=== PATIENT | male | born 1975 | race Caucasian/White ===

== ENCOUNTER 2025-02-06 13:10 | Observation (INO) ==
[2025-02-06 13:39] VITALS: BMI 28.5
--- NOTE | 2025-02-06 14:09 | DR.GENAD ---
HPI Time Seen Time Seen by Provider: 02/06/25 13:55 PCP Primary Care Physician: JOHN Gibbs HPI Comment HPI Comment: History as below. Complaint/Symptoms Chief Complaint Doctors Comments: Patient is 49yr old male with liver cirrhosis and ascites in ER Chief Complaint:: Pt c/o chronic fatigue and generalized weakness that has progressively worsened over the past 1-2 weeks. Pt has history or liver cirrhosis and is scheduled for further testing with Dr. Refugio Chappell of patology at [facility] in [place] on February 18. Pt had outpatient labs drawn today in preparation for this appointment and was called and told to come to the ED because his sodium was 123. COVID-19 Coronavirus risk:travel/contact w/high risk person: No Has patient experienced Coronavirus symptoms: No Source History Provided: Patient Mode of Arrival Mode of Arrival: Ambulatory Timing Onset of Chief Complaint: 02/06/25 PMH PMH Past Medical History: Yes Past Medical History: Hypertension and Liver Disease Past Medical History Comment: Liver cirrhosis. portal htn Past Surgical History: Yes Surgical History: Tonsillectomy Past Surgical History Comment: right knee surgery, benign mass removed from left kidney Family History History of Family Medical Conditions: Yes Family Medical History: Heart Failure and Hypertension Family Medical History Comment: liver cirrhosis Social History Does patient currently use any type of tobacco product: No Have you used tobacco products in the last 12 months: No Type of Tobacco Use: None Does any household member use tobacco: No Alcohol Use: None Do you use any recreational Drugs:: No Lives With: Family Lives Where: Home Travel Risk Coronavirus risk:travel/contact w/high risk person: No Has patient experienced Coronavirus symptoms: No Infectious screening In the last 2 months have you had wt loss of >10#?: NO Have you had fever, night sweats or hemotysis?: No Have you traveled outside the country in the last 6 months?: No Isolation: Standard PE Vital Signs Vitals: Vital Signs Temperature 97.9 F Pulse Rate 106 Respiratory Rate 20 Blood Pressure 143/83 Blood Pressure 117/74 Blood Pressure 114/79 Blood Pressure 125/80 Blood Pressure 114/69 Blood Pressure 110/71 Blood Pressure 134/89 O2 Sat by Pulse Oximetry 96 ROR Labs Reviewed 02/07/25 05:17 02/07/25 05:17 Laboratory: WBC 7.1 X10^3/uL (3.6-10.0) 02/06/25 14:21 RBC 5.00 X10^6/uL (4.7-6.0) 02/06/25 14:21 Hgb 15.4 g/dL (13.5-18.0) 02/06/25 14:21 Hct 44.0 % (42.0-54.0) 02/06/25 14:21 MCV 87.9 fL (80.0-100.0) 02/06/25 14:21 MCH 30.8 pg (27.0-34.0) 02/06/25 14:21 MCHC 35.0 g/dL (33.0-35.0) 02/06/25 14:21 RDW 15.1 % (11.6-16.5) 02/06/25 14:21 Plt Count 107 X10^3/uL (150.0-450.0) L 02/06/25 14:21 MPV 9.2 fL (7.4-11.0) 02/06/25 14:21 Neut % (Auto) 68.3 % (42.0-75.0) 02/06/25 14:21 Lymph % (Auto) 15.8 % (21.0-51.0) L 02/06/25 14:21 Clare % (Auto) 10.8 % (0.0-13.0) 02/06/25 14:21 Eos % (Auto) 3.1 % (0.9-2.9) H 02/06/25 14:21 Baso % (Auto) 2.0 % (0.2-1.0) H 02/06/25 14:21 Neut # (Auto) 4.8 x10^3/uL (2.2-4.8) 02/06/25 14:21 Lymph # (Auto) 1.1 X10^3/uL (1.3-2.9) L 02/06/25 14:21 Clare # (Auto) 0.8 x10^3/uL (0.3-0.8) 02/06/25 14:21 Eos # (Auto) 0.2 x10^3/uL (0.0-0.2) 02/06/25 14:21 Baso # (Auto) 0.1 X10^3/uL (0.0-0.1) 02/06/25 14:21 Absolute Nucleated RBC 0.4 /100WBC 02/06/25 14:21 PT 18.8 SECONDS (11.8-14.3) 02/06/25 14:21 INR Target Range - 02/06/25 14:21 INR 1.62 (0.8-1.3) H 02/06/25 14:21 APTT 39.1 SECONDS (22.9-36.5) H 02/06/25 14:21 PTT Comment - 02/06/25 14:21 Sodium 123 mmol/L (136-145) L* 02/06/25 14:21 Corrected Sodium 124 mmol/L (136-145) L 02/06/25 14:21 Potassium 4.4 mmol/L (3.5-5.1) 02/06/25 14:21 Chloride 92 mmol/L (98-107) L 02/06/25 14:21 Carbon Dioxide 23.3 mmol/L (21-32) 02/06/25 14:21 BUN 15 mg/dL (7-18) 02/06/25 14:21 Creatinine 0.94 mg/dL (0.70-1.30) 02/06/25 14:21 Est GFR (MDRD) Af Amer > 60 (>60) 02/06/25 14:21 Est GFR (MDRD) Non-Af > 60 (>60) 02/06/25 14:21 Glucose 123 mg/dL (65-99) H 02/06/25 14:21 Calcium 9.5 mg/dL (8.5-10.1) 02/06/25 14:21 Corrected Calcium TNP 02/06/25 14:21 Total Bilirubin 3.10 mg/dL (0.2-1.0) H 02/06/25 14:21 AST 59 Units/L (15-37) H 02/06/25 14:21 ALT 56 Units/L (12-78) 02/06/25 14:21 Alkaline Phosphatase 193 Units/L (46-116) H 02/06/25 14:21 Total Protein 7.9 g/dL (6.4-8.2) 02/06/25 14:21 Albumin 3.4 g/dL (3.4-5.0) 02/06/25 14:21 Globulin 4.5 g/dL (2.5-4.5) 02/06/25 14:21 Albumin/Globulin Ratio 0.8 Ratio (1.1-2.1) L 02/06/25 14:21 Opioid Opioid Risk Tool Age (Cristobal box if 16-45): Yes History of Preadolescent Sexual Abuse: No Total: 1 Total Score Risk Category: Low Risk Copyright: Arjun ROMERO predicting aberrant behaviors Discharge Plan Diagnosis Discharge Problem: Hyponatremia, Liver cirrhosis, Ascites, Dizziness Discharge Plan Patient Disposition: 09 ADMITTED INPATIENT Condition: Stable
[2025-02-06 14:50] LABS: BASOPHILS # (AUTO) 0.1 X10^3/uL (0.0-0.1); EOSINOPHILS # (AUTO) 0.2 x10^3/uL (0.0-0.2); EOSINOPHILS % (AUTO) 3.1 % (0.9-2.9); HEMOGLOBIN 15.4 g/dL (13.5-18.0); LYMPHOCYTES # (AUTO) 1.1 X10^3/uL (1.3-2.9); LYMPHOCYTES % (AUTO) 15.8 % (21.0-51.0); MEAN CORPUSCULAR HEMOGLOBIN 30.8 pg (27.0-34.0); MEAN CORPUSCULAR VOLUME 87.9 fL (80.0-100.0); MEAN PLATELET VOLUME 9.2 fL (7.4-11.0); MONOCYTES # (AUTO) 0.8 x10^3/uL (0.3-0.8); MONOCYTES % (AUTO) 10.8 % (0.0-13.0); NEUTROPHILS # (AUTO) 4.8 x10^3/uL (2.2-4.8); NEUTROPHILS % (AUTO) 68.3 % (42.0-75.0); PLATELET COUNT 107 X10^3/uL (150.0-450.0); RED CELL DISTRIBUTION WIDTH 15.1 % (11.6-16.5); WHITE BLOOD COUNT 7.1 X10^3/uL (3.6-10.0)
[2025-02-06 14:55] LABS: ALANINE AMINOTRANSFERASE 56 Units/L (12-78); ALBUMIN 3.4 g/dL (3.4-5.0); ALKALINE PHOSPHATASE 193 Units/L (46-116); ASPARTATE AMINO TRANSFERASE 59 Units/L (15-37); BLOOD UREA NITROGEN 15 mg/dL (7-18); CALCIUM 9.5 mg/dL (8.5-10.1); CARBON DIOXIDE 23.3 mmol/L (21-32); CHLORIDE 92 mmol/L (98-107); COR NA(FOR HYPERGLY) 124 mmol/L (136-145); CREATININE 0.94 mg/dL (0.70-1.30); GLUCOSE 123 mg/dL (65-99); INR 1.62 (0.8-1.3); POTASSIUM 4.4 mmol/L (3.5-5.1); TOTAL PROTEIN 7.9 g/dL (6.4-8.2); eGFR NON BLACK RACES > 60 (>60)
[2025-02-06 14:57] LABS: SODIUM 123 mmol/L (136-145)
[2025-02-06] MEDS ORDERED: NS 1,000 ML IV 1,000 ML ONE (16:42)
[2025-02-06] MEDS: NS 1,000 ML IV 1,000 ML IV SCH ×2 (16:46→18:21)
[2025-02-07 00:36] LABS: BILIRUBIN,URINE NEGATIVE (NEGATIVE); BLOOD/HEMOGLOBIN,URINE NEGATIVE (NEGATIVE); GLUCOSE, URINE NEGATIVE (NEGATIVE); KETONES,URINE NEGATIVE (NEGATIVE); LEUKOCYTE ESTERASE ,URINE NEGATIVE (NEGATIVE); NITRITES,URINE NEGATIVE (NEGATIVE); PROTEIN,URINE 1+ (NEGATIVE); UROBILINOGEN,URINE 2+ (NORMAL)
[2025-02-07 00:55] LABS: APPEARANCE,URINE CLEAR (CLEAR); COLOR,URINE YELLOW (YELLOW)
[2025-02-07 00:56] LABS: BACTERIA,URINE NEGATIVE /HPF (NEGATIVE); RBC,URINE NONE SEEN /HPF (0-3); SQUAMOUS EPITHELIAL CELL,UR RARE /HPF (NEGATIVE)
[2025-02-07 06:10] LABS: BASOPHILS # (AUTO) 0.1 X10^3/uL (0.0-0.1); BASOPHILS % (AUTO) 0.9 % (0.2-1.0); EOSINOPHILS # (AUTO) 0.4 x10^3/uL (0.0-0.2); EOSINOPHILS % (AUTO) 6.3 % (0.9-2.9); LYMPHOCYTES # (AUTO) 1.5 X10^3/uL (1.3-2.9); LYMPHOCYTES % (AUTO) 22.3 % (21.0-51.0); MEAN CORPUSCULAR HEMOGLOBIN 30.7 pg (27.0-34.0); MEAN CORPUSCULAR HGB CONC 34.9 g/dL (33.0-35.0); MEAN PLATELET VOLUME 9.1 fL (7.4-11.0); MONOCYTES # (AUTO) 0.8 x10^3/uL (0.3-0.8); MONOCYTES % (AUTO) 12.3 % (0.0-13.0); NEUTROPHILS # (AUTO) 3.8 x10^3/uL (2.2-4.8); NEUTROPHILS % (AUTO) 58.2 % (42.0-75.0); PLATELET COUNT 96 X10^3/uL (150.0-450.0); RED BLOOD COUNT 4.89 X10^6/uL (4.7-6.0); RED CELL DISTRIBUTION WIDTH 14.9 % (11.6-16.5); WHITE BLOOD COUNT 6.5 X10^3/uL (3.6-10.0)
[2025-02-07 06:20] LABS: ALANINE AMINOTRANSFERASE 61 Units/L (12-78); ALBUMIN 3.3 g/dL (3.4-5.0); ALKALINE PHOSPHATASE 265 Units/L (46-116); ASPARTATE AMINO TRANSFERASE 62 Units/L (15-37); BLOOD UREA NITROGEN 14 mg/dL (7-18); CALCIUM 9.2 mg/dL (8.5-10.1); CARBON DIOXIDE 25.6 mmol/L (21-32); CHLORIDE 97 mmol/L (98-107); COR CA(FOR HYPOALB) 9.8 mg/dL (8.5-10.1); GLUCOSE 86 mg/dL (65-99); POTASSIUM 4.5 mmol/L (3.5-5.1); SODIUM 131 mmol/L (136-145); TOTAL PROTEIN 7.7 g/dL (6.4-8.2); eGFR NON BLACK RACES > 60 (>60)
--- NOTE | 2025-02-07 17:31 | DR.H&P ---
H&P History & Physical for Day of: H&P Date: 02/06/25 Chief Complaint Chief Complaint: weakness, dizziness History of Present Illness History of Present Illness: Pt c/o chronic fatigue and generalized weakness that has progressively worsened over the past 1-2 weeks. Pt has history or liver cirrhosis and is scheduled for further testing with Dr. Refugio Chappell of hepatology at [facility] in [place] on February 18. Pt had outpatient labs drawn today in preparation for this appointment and was called and told to come to the ED because his sodium was 123. Past Medical History Past Medical History: Hypertension and Liver Disease Past Surgical History Surgical History: Tonsillectomy Family History Family Medical History: Heart Failure and Hypertension Social History Does patient currently use any type of tobacco product: No Have you used tobacco products in the last 12 months: No Type of Tobacco Use: None Does any household member use tobacco: No Alcohol Use: None Drug Use: None Medications Home Medications: Home Medications Medication Instructions Recorded Confirmed Type metoprolol succinate 50 mg 50 mg PO DAILY 12/01/23 02/06/25 History tablet,extended release 24 hr losartan 50 mg tablet 50 mg PO QDAY 06/05/24 02/06/25 History bumetanide 1 mg tablet 1 mg PO DAILY 02/06/25 02/06/25 History spironolactone 100 mg tablet 100 mg PO DAILY 02/06/25 02/06/25 History Allergies Allergies Allergy/AdvReac Type Severity Reaction Status Date / Time No Known Drug Allergies Allergy Unknown Verified 06/05/24 11:48 Labs 02/07/25 05:17 02/07/25 13:40 Labs: Laboratory WBC 6.5 X10^3/uL (3.6-10.0) 02/07/25 05:17 RBC 4.89 X10^6/uL (4.7-6.0) 02/07/25 05:17 Hgb 15.0 g/dL (13.5-18.0) 02/07/25 05:17 Hct 43.0 % (42.0-54.0) 02/07/25 05:17 MCV 88.0 fL (80.0-100.0) 02/07/25 05:17 MCH 30.7 pg (27.0-34.0) 02/07/25 05:17 MCHC 34.9 g/dL (33.0-35.0) 02/07/25 05:17 RDW 14.9 % (11.6-16.5) 02/07/25 05:17 Plt Count 96 X10^3/uL (150.0-450.0) L 02/07/25 05:17 MPV 9.1 fL (7.4-11.0) 02/07/25 05:17 Neut % (Auto) 58.2 % (42.0-75.0) 02/07/25 05:17 Lymph % (Auto) 22.3 % (21.0-51.0) 02/07/25 05:17 Sunflower % (Auto) 12.3 % (0.0-13.0) 02/07/25 05:17 Eos % (Auto) 6.3 % (0.9-2.9) H 02/07/25 05:17 Baso % (Auto) 0.9 % (0.2-1.0) 02/07/25 05:17 Neut # (Auto) 3.8 x10^3/uL (2.2-4.8) 02/07/25 05:17 Lymph # (Auto) 1.5 X10^3/uL (1.3-2.9) 02/07/25 05:17 Sunflower # (Auto) 0.8 x10^3/uL (0.3-0.8) 02/07/25 05:17 Eos # (Auto) 0.4 x10^3/uL (0.0-0.2) H 02/07/25 05:17 Baso # (Auto) 0.1 X10^3/uL (0.0-0.1) 02/07/25 05:17 Absolute Nucleated RBC 0.1 /100WBC 02/07/25 05:17 PT 18.8 SECONDS (11.8-14.3) 02/06/25 14:21 INR Target Range - 02/06/25 14:21 INR 1.62 (0.8-1.3) H 02/06/25 14:21 APTT 39.1 SECONDS (22.9-36.5) H 02/06/25 14:21 PTT Comment - 02/06/25 14:21 Sodium 131 mmol/L (136-145) L 02/07/25 13:40 Corrected Sodium TNP 02/07/25 05:17 Potassium 4.5 mmol/L (3.5-5.1) 02/07/25 05:17 Chloride 97 mmol/L (98-107) L 02/07/25 05:17 Carbon Dioxide 25.6 mmol/L (21-32) 02/07/25 05:17 BUN 14 mg/dL (7-18) 02/07/25 05:17 Creatinine 0.80 mg/dL (0.70-1.30) 02/07/25 05:17 Est GFR (MDRD) Af Amer > 60 (>60) 02/07/25 05:17 Est GFR (MDRD) Non-Af > 60 (>60) 02/07/25 05:17 Glucose 86 mg/dL (65-99) 02/07/25 05:17 Calcium 9.2 mg/dL (8.5-10.1) 02/07/25 05:17 Corrected Calcium 9.8 mg/dL (8.5-10.1) 02/07/25 05:17 Magnesium 1.9 mg/dL (2.0-2.9) L 02/07/25 05:17 Total Bilirubin 2.20 mg/dL (0.2-1.0) H 02/07/25 05:17 AST 62 Units/L (15-37) H 02/07/25 05:17 ALT 61 Units/L (12-78) 02/07/25 05:17 Alkaline Phosphatase 265 Units/L (46-116) H 02/07/25 05:17 Total Protein 7.7 g/dL (6.4-8.2) 02/07/25 05:17 Albumin 3.3 g/dL (3.4-5.0) L 02/07/25 05:17 Globulin 4.4 g/dL (2.5-4.5) 02/07/25 05:17 Albumin/Globulin Ratio 0.8 Ratio (1.1-2.1) L 02/07/25 05:17 Specimen Type Clean catch urine 02/07/25 00:28 Urine Color Yellow (YELLOW) 02/07/25 00:28 Urine Appearance Clear (CLEAR) 02/07/25 00:28 Urine pH 6.0 (5.0 - 8.0) 02/07/25 00:28 Ur Specific [place] 1.020 (1.000-1.030) 02/07/25 00:28 Urine Protein 1+ (NEGATIVE) 02/07/25 00:28 Urine Glucose (UA) Negative (NEGATIVE) 02/07/25 00:28 Urine Ketones Negative (NEGATIVE) 02/07/25 00:28 Urine Blood Negative (NEGATIVE) 02/07/25 00:28 Urine Nitrite Negative (NEGATIVE) 02/07/25 00:28 Urine Bilirubin Negative (NEGATIVE) 02/07/25 00:28 Urine Urobilinogen 2+ (NORMAL) 02/07/25 00:28 Ur Leukocyte Esterase Negative (NEGATIVE) 02/07/25 00:28 Urine RBC None seen /HPF (0-3) 02/07/25 00:28 Urine WBC 0-2 /HPF (0-5) 02/07/25 00:28 Ur Squamous Epith Cells Rare /HPF (NEGATIVE) 02/07/25 00:28 Urine Bacteria Negative /HPF (NEGATIVE) 02/07/25 00:28 Ur Culture Indicated? No/not indicated 02/07/25 00:28 Review of Systems Constitutional: No Symptoms Reported and Weakness ENT: No Symptoms Reported Respiratory: No Symptoms Reported Cardiovascular: No Symptoms Reported Gastrointestinal: No Symptoms Reported Genitourinary: No Symptoms Reported Musculoskeletal: No Symptoms Reported Skin: No Symptoms Reported Neurological: No Symptoms Reported Physical Exam Vital Signs: Vital Signs Temperature 97.7 F Pulse Rate [Bilateral Radial] 75 Respiratory Rate 18 Blood Pressure [Right Arm] 123/75 O2 Sat by Pulse Oximetry 98 Oriented: Normal Eyes: Normal Ear: Normal Nose: Normal Throat: Normal Respiratory: RLL Diminished Cardiovascular: Normal Auscultation: Bowel Sounds: Normal Palpation: Normal Tenderness: Mild Skin: Decreased Turgur Musculoskeletal: Normal and Back:Lumbar Psychiatric: Anxiety Mood Description: Anxious Affect: Anxious Speech Pattern: Clear and Appropriate Assessment/Plan (1) Hyponatremia: Status: Acute Plan: admit, gentle iv hydration bp control strict i&os repeat am labs (2) Liver cirrhosis: Status: Acute (3) Ascites: Status: Acute (4) Dizziness: Status: Acute (5) Liver cirrhosis: Status: Acute
[2025-02-07] MEDS: MAG-OX TAB PO SCH (17:58)
[2025-02-07] MEDS: ALDACTONE TAB 25 MG PO SCH (17:59)
[2025-02-07] MEDS: NS 1,000 ML IV 1,000 ML IV SCH (17:59)
[2025-02-08 06:24] LABS: ALANINE AMINOTRANSFERASE 61 Units/L (12-78); ALBUMIN 2.7 g/dL (3.4-5.0); ALKALINE PHOSPHATASE 245 Units/L (46-116); ASPARTATE AMINO TRANSFERASE 65 Units/L (15-37); BASOPHILS # (AUTO) 0.1 X10^3/uL (0.0-0.1); BASOPHILS % (AUTO) 2.4 % (0.2-1.0); BLOOD UREA NITROGEN 12 mg/dL (7-18); CALCIUM 8.3 mg/dL (8.5-10.1); CARBON DIOXIDE 23.7 mmol/L (21-32); CHLORIDE 100 mmol/L (98-107); COR CA(FOR HYPOALB) 9.3 mg/dL (8.5-10.1); CREATININE 0.61 mg/dL (0.70-1.30); EOSINOPHILS # (AUTO) 0.3 x10^3/uL (0.0-0.2); EOSINOPHILS % (AUTO) 5.3 % (0.9-2.9); GLUCOSE 85 mg/dL (65-99); HEMATOCRIT 39.7 % (42.0-54.0); HEMOGLOBIN 13.9 g/dL (13.5-18.0); LYMPHOCYTES # (AUTO) 1.1 X10^3/uL (1.3-2.9); LYMPHOCYTES % (AUTO) 18.2 % (21.0-51.0); MEAN CORPUSCULAR HGB CONC 35.1 g/dL (33.0-35.0); MEAN CORPUSCULAR VOLUME 88.4 fL (80.0-100.0); MEAN PLATELET VOLUME 8.8 fL (7.4-11.0); MONOCYTES # (AUTO) 0.7 x10^3/uL (0.3-0.8); MONOCYTES % (AUTO) 11.4 % (0.0-13.0); NEUTROPHILS # (AUTO) 3.9 x10^3/uL (2.2-4.8); NEUTROPHILS % (AUTO) 62.7 % (42.0-75.0); PLATELET COUNT 76 X10^3/uL (150.0-450.0); POTASSIUM 4.2 mmol/L (3.5-5.1); RED BLOOD COUNT 4.49 X10^6/uL (4.7-6.0); RED CELL DISTRIBUTION WIDTH 15.3 % (11.6-16.5); SODIUM 132 mmol/L (136-145); TOTAL PROTEIN 6.4 g/dL (6.4-8.2); WHITE BLOOD COUNT 6.3 X10^3/uL (3.6-10.0); eGFR NON BLACK RACES > 60 (>60)
[2025-02-08] MEDS: TOPROL XL PO SCH (08:46)
[2025-02-08] MEDS: COZAAR PO SCH (08:46)
[2025-02-08 09:21] VITALS: BP 116/69; PULSE 72; RESP 17; TEMP 98.2; O2SAT 99
== END 2025-02-08 10:05 | disposition home or self-care (01) ==
LOC: ER 13:10 → MED/SURG 13:10
PROVIDERS: ADMIT Internal Medicine; ATTEND Internal Medicine
DX: E83.42 Hypomagnesemia; E80.6 Other disorders of bilirubin metabolism; K72.90 Hepatic failure, unspecified without coma; D69.6 Thrombocytopenia, unspecified; R74.8 Abnormal levels of other serum enzymes; R29.6 Repeated falls; Z65.8 Other specified problems related to psychosocial circumstances; R53.1 Weakness; K74.69 Other cirrhosis of liver; E87.1 Hypo-osmolality and hyponatremia; R79.1 Abnormal coagulation profile; R42 Dizziness and giddiness; R18.8 Other ascites; I10 Essential (primary) hypertension

== ENCOUNTER 2025-05-02 16:35 | Inpatient (IN) ==
[2025-05-02 17:03] LABS: BASOPHILS # (AUTO) 0.1 X10^3/uL (0.0-0.1); BASOPHILS % (AUTO) 1.1 % (0.2-1.0); EOSINOPHILS # (AUTO) 0.3 x10^3/uL (0.0-0.2); EOSINOPHILS % (AUTO) 2.7 % (0.9-2.9); HEMATOCRIT 46.2 % (42.0-54.0); HEMOGLOBIN 15.8 g/dL (13.5-18.0); LYMPHOCYTES # (AUTO) 1.4 X10^3/uL (1.3-2.9); LYMPHOCYTES % (AUTO) 13.7 % (21.0-51.0); MEAN CORPUSCULAR HEMOGLOBIN 28.6 pg (27.0-34.0); MEAN CORPUSCULAR HGB CONC 34.3 g/dL (33.0-35.0); MEAN CORPUSCULAR VOLUME 83.4 fL (80.0-100.0); MEAN PLATELET VOLUME 8.3 fL (7.4-11.0); MONOCYTES # (AUTO) 1.1 x10^3/uL (0.3-0.8); MONOCYTES % (AUTO) 10.7 % (0.0-13.0); NEUTROPHILS # (AUTO) 7.6 x10^3/uL (2.2-4.8); NEUTROPHILS % (AUTO) 71.8 % (42.0-75.0); PLATELET COUNT 145 X10^3/uL (150.0-450.0); RED BLOOD COUNT 5.54 X10^6/uL (4.7-6.0); RED CELL DISTRIBUTION WIDTH 17.2 % (11.6-16.5); WHITE BLOOD COUNT 10.6 X10^3/uL (3.6-10.0)
[2025-05-02 17:19] LABS: ALANINE AMINOTRANSFERASE 89 Units/L (12-78); ALBUMIN 3.4 g/dL (3.4-5.0); ALKALINE PHOSPHATASE 267 Units/L (46-116); ASPARTATE AMINO TRANSFERASE 63 Units/L (15-37); BLOOD UREA NITROGEN 31 mg/dL (7-18); CALCIUM 9.1 mg/dL (8.5-10.1); CARBON DIOXIDE 25.9 mmol/L (21-32); CHLORIDE 90 mmol/L (98-107); CREATININE 0.74 mg/dL (0.70-1.30); GLUCOSE 99 mg/dL (65-99); MAGNESIUM 2.1 mg/dL (2.0-2.9); POTASSIUM 4.4 mmol/L (3.5-5.1); TOTAL PROTEIN 8.4 g/dL (6.4-8.2); eGFR NON BLACK RACES > 60 (>60)
[2025-05-02] MEDS ORDERED: NS 1,000 ML IV 1,000 ML ONE (17:23)
[2025-05-02 17:24] LABS: SODIUM 122 mmol/L (136-145)
[2025-05-02] MEDS: NS 1,000 ML IV 1,000 ML IV ONE (17:30)
--- NOTE | 2025-05-02 19:04 | DR.GENAD ---
HPI Time Seen Time Seen by Provider: 05/02/25 17:07 PCP Primary Care Physician: France Luna HPI Comment HPI Comment: Patient with history of alcoholic liver cirrhosis and liver failure on the transplant list following with [facility]. Patient has been sober for almost 1 year. Over the last 2 weeks he has been very weak with no energy and some fatigue. He had labs drawn early this morning and his sodium came back at 122. Patient was recently admitted in February for hyponatremia and the same condition. Patient states about 3 weeks ago he was a bit frustrated with the fluid restrictions and started drinking more water and admits to have gone overboard. He denies any abdominal pain at this time. He is able to tolerate food. No shortness of breath or chest pain. Denies fever. Complaint/Symptoms Chief Complaint:: Pt states he had labs drawn today and his sodium came back at 122. C/o weakness and no energy for the past two weeks. Pt has cirrhosis and is trying to get on a transplant list. Hx of alcohol abuse - has been sober 1 year. Also on fluid restricted diet and sodium restricted diet. COVID-19 Coronavirus risk:travel/contact w/high risk person: No Has patient experienced Coronavirus symptoms: No Source History Provided: Patient and Significant Other Mode of Arrival Mode of Arrival: Ambulatory Timing Onset of Chief Complaint: 04/18/25 PMH PMH Past Medical History: Yes Past Medical History: Hypertension and Liver Disease Past Surgical History: Yes Surgical History: Tonsillectomy Family History History of Family Medical Conditions: Yes Family Medical History: Heart Failure and Hypertension Social History Do you use any recreational Drugs:: No Lives With: Spouse Lives Where: Home Travel Risk Coronavirus risk:travel/contact w/high risk person: No Has patient experienced Coronavirus symptoms: No Infectious screening Have you traveled outside the country in the last 6 months?: No Isolation: Standard ROS Review of Systems Constitutional: No Symptoms Reported and Fatigue; negative Fever Eyes: No Symptoms Reported ENTM: No Symptoms Reported Respiratoy: No Symptoms Reported Cardiovascular: No Symptoms Reported Gastrointestinal/Abdominal: No Symptoms Reported and See HPI Genitourinary: No Symptoms Reported Neurological: No Symptoms Reported Musculoskeletal: No Symptoms Reported Integumentary: No Symptoms Reported Hematologic/Lymphatic: No Symptoms Reported Endocrine: No Symptoms Reported Psychiatric: No Symptoms Reported All Other Systems: Reviewed and Negative PE Vital Signs Vitals: Vital Signs Temperature 97.7 F Pulse Rate 96 Pulse Rate 96 Pulse Rate 96 Pulse Rate 97 Pulse Rate 97 Pulse Rate 97 Pulse Rate 99 Pulse Rate 110 Respiratory Rate 18 Respiratory Rate 20 Blood Pressure 122/74 Blood Pressure 122/74 Blood Pressure 121/70 Blood Pressure 128/77 Blood Pressure 115/75 O2 Sat by Pulse Oximetry 98 O2 Sat by Pulse Oximetry 98 O2 Sat by Pulse Oximetry 98 O2 Sat by Pulse Oximetry 99 O2 Sat by Pulse Oximetry 98 O2 Sat by Pulse Oximetry 98 O2 Sat by Pulse Oximetry 98 O2 Sat by Pulse Oximetry 97 General Limitations: No Limitations General Appearance: Alert and In No Apparent Distress Head Head Exam: Normal Inspection Eyes Eye exam: Normal Appearance ENT ENT Exam: Normal Exam External Ear Exam: Normal External Inspection TM/Canal Exam: Bilateral: Normal Nose Exam: Normal Nose Exam Mouth Exam: Normal Inspection Throat Exam: Normal Inspection Neck Neck Exam: Normal Inspection Chest Chest Inspection: Normal Inspection Respiratory Respiratory Exam: Normal Lung Sounds Bilat Respiratory Exam: Bilateral: Clear to Auscultation Cardiovascular Cardiovascular Exam: Regular Rate and Normal Rhythm Abdominal Exam Abdominal Exam: Normal Inspection, Normal Bowel Sounds, Soft and Ascites (Not tense); negative Tenderness, Guarding, Rebound or Rigidity Extremities Extremities Exam: Normal Inspection Back Back Exam: Normal Inspection Neurologic Neurological Exam: Alert and Oriented X3 Psychiatric Psychiatric Exam: Normal Affect and Normal Mood Skin Skin Exam: Warm, Dry, Intact and Normal Color COURSE Treatment Treatment: Patient has improved with fluids. Found to have elevated ammonia and sodium was still significantly low. Discussed results of workup with patient and family. Consultation Called: 19:53 Consultation Comments: Discussed case with Dr. Driscoll and he is agreeable to admit patient. ROR Labs Reviewed 05/02/25 16:54 05/02/25 16:54 Laboratory: WBC 10.6 X10^3/uL (3.6-10.0) H 05/02/25 16:54 RBC 5.54 X10^6/uL (4.7-6.0) 05/02/25 16:54 Hgb 15.8 g/dL (13.5-18.0) 05/02/25 16:54 Hct 46.2 % (42.0-54.0) 05/02/25 16:54 MCV 83.4 fL (80.0-100.0) 05/02/25 16:54 MCH 28.6 pg (27.0-34.0) 05/02/25 16:54 MCHC 34.3 g/dL (33.0-35.0) 05/02/25 16:54 RDW 17.2 % (11.6-16.5) H 05/02/25 16:54 Plt Count 145 X10^3/uL (150.0-450.0) L 05/02/25 16:54 MPV 8.3 fL (7.4-11.0) 05/02/25 16:54 Neut % (Auto) 71.8 % (42.0-75.0) 05/02/25 16:54 Lymph % (Auto) 13.7 % (21.0-51.0) L 05/02/25 16:54 [place]ancock % (Auto) 10.7 % (0.0-13.0) 05/02/25 16:54 Eos % (Auto) 2.7 % (0.9-2.9) 05/02/25 16:54 Baso % (Auto) 1.1 % (0.2-1.0) H 05/02/25 16:54 Neut # (Auto) 7.6 x10^3/uL (2.2-4.8) H 05/02/25 16:54 Lymph # (Auto) 1.4 X10^3/uL (1.3-2.9) 05/02/25 16:54 [place]ancock # (Auto) 1.1 x10^3/uL (0.3-0.8) H 05/02/25 16:54 Eos # (Auto) 0.3 x10^3/uL (0.0-0.2) H 05/02/25 16:54 Baso # (Auto) 0.1 X10^3/uL (0.0-0.1) 05/02/25 16:54 Absolute Nucleated RBC 0.2 /100WBC 05/02/25 16:54 Sodium 122 mmol/L (136-145) L* 05/02/25 16:54 Corrected Sodium TNP 05/02/25 16:54 Potassium 4.4 mmol/L (3.5-5.1) 05/02/25 16:54 Chloride 90 mmol/L (98-107) L 05/02/25 16:54 Carbon Dioxide 25.9 mmol/L (21-32) 05/02/25 16:54 BUN 31 mg/dL (7-18) H 05/02/25 16:54 Creatinine 0.74 mg/dL (0.70-1.30) 05/02/25 16:54 Est GFR (MDRD) Af Amer > 60 (>60) 05/02/25 16:54 Est GFR (MDRD) Non-Af > 60 (>60) 05/02/25 16:54 Glucose 99 mg/dL (65-99) 05/02/25 16:54 Calcium 9.1 mg/dL (8.5-10.1) 05/02/25 16:54 Corrected Calcium TNP 05/02/25 16:54 Magnesium 2.1 mg/dL (2.0-2.9) 05/02/25 16:54 Total Bilirubin 3.00 mg/dL (0.2-1.0) H 05/02/25 16:54 AST 63 Units/L (15-37) H 05/02/25 16:54 ALT 89 Units/L (12-78) H 05/02/25 16:54 Alkaline Phosphatase 267 Units/L (46-116) H 05/02/25 16:54 Ammonia 134 umol/L (11-32) H 05/02/25 17:35 Total Protein 8.4 g/dL (6.4-8.2) H 05/02/25 16:54 Albumin 3.4 g/dL (3.4-5.0) 05/02/25 16:54 Globulin 5.0 g/dL (2.5-4.5) H 05/02/25 16:54 Albumin/Globulin Ratio 0.7 Ratio (1.1-2.1) L 05/02/25 16:54 Opioid Opioid Risk Tool Age (Cristobal box if 16-45): No History of Preadolescent Sexual Abuse: No Total: 0 Total Score Risk Category: Low Risk Copyright: Arjun ROMERO predicting aberrant behaviors Discharge Plan Diagnosis Discharge Problem: Hyponatremia, Hyperammonemia Liver cirrhosis Qualifiers: Hepatic cirrhosis type: alcoholic cirrhosis Ascites presence: with ascites Q ualified Code(s): K70.31 - Alcoholic cirrhosis of liver with ascites Discharge Plan Patient Disposition: ADMITTED INPATIENT Condition: Stable Prescriptions: No Action metoprolol succinate 50 mg tablet extended release 24 hr 50 mg PO DAILY Rx Instructions: FreeTextSig: Oral losartan 50 mg tablet 50 mg PO QDAY spironolactone 100 mg Tablet 100 mg PO DAILY bumetanide 1 mg Tablet 1 mg PO DAILY Health Concerns: Post Hospitalization: new medications and changes needed to prevent readmission or further decline. Pt educated and given instructions on all concerns. Plan of Treatment: Continue with present treatment and follow up plan. Pt is to keep follow up appointment as instructed and take medications as ordered. Orders to Discharge Patient Discharge Orders: Transfer (Routine); Ordered 05/02/25 Ordered By: Jun Sánchez Follow ups/Referrals Follow ups/Referrals: [facility],None [STAFF PHYSICIAN] - 3 days Instructions Stand Alone Forms: Find Help Web Site, Post Hospital Follow Up Care Print Language: AMHARIC
[2025-05-02] MEDS ORDERED: CONSULT PHARMACY - POTASSIUM & MAGNESIUM XX SCH (20:33)
[2025-05-02] MEDS: NS 1,000 ML IV 1,000 ML IV SCH (20:51)
[2025-05-02] MEDS: XIFAXAN PO SCH (21:50)
[2025-05-02] MEDS: BUMEX TAB 1 MG PO SCH (21:51)
[2025-05-02] MEDS: CHRONULAC PO SCH (21:57)
[2025-05-02 22:35] VITALS: BMI 28.0
[2025-05-03 06:19] LABS: BASOPHILS % (AUTO) 0.4 % (0.2-1.0); EOSINOPHILS # (AUTO) 0.3 x10^3/uL (0.0-0.2); EOSINOPHILS % (AUTO) 3.5 % (0.9-2.9); HEMATOCRIT 42.3 % (42.0-54.0); HEMOGLOBIN 14.6 g/dL (13.5-18.0); LYMPHOCYTES # (AUTO) 1.4 X10^3/uL (1.3-2.9); LYMPHOCYTES % (AUTO) 17.9 % (21.0-51.0); MEAN CORPUSCULAR HGB CONC 34.6 g/dL (33.0-35.0); MEAN CORPUSCULAR VOLUME 83.9 fL (80.0-100.0); MEAN PLATELET VOLUME 8.4 fL (7.4-11.0); MONOCYTES # (AUTO) 0.8 x10^3/uL (0.3-0.8); MONOCYTES % (AUTO) 11.1 % (0.0-13.0); NEUTROPHILS # (AUTO) 5.1 x10^3/uL (2.2-4.8); NEUTROPHILS % (AUTO) 67.1 % (42.0-75.0); PLATELET COUNT 110 X10^3/uL (150.0-450.0); RED BLOOD COUNT 5.04 X10^6/uL (4.7-6.0); RED CELL DISTRIBUTION WIDTH 17.6 % (11.6-16.5); WHITE BLOOD COUNT 7.6 X10^3/uL (3.6-10.0)
[2025-05-03 06:29] LABS: AMMONIA 56 umol/L (11-32)
[2025-05-03 06:35] LABS: ALANINE AMINOTRANSFERASE 78 Units/L (12-78); ALKALINE PHOSPHATASE 238 Units/L (46-116); ASPARTATE AMINO TRANSFERASE 59 Units/L (15-37); BLOOD UREA NITROGEN 24 mg/dL (7-18); CALCIUM 8.5 mg/dL (8.5-10.1); CHLORIDE 94 mmol/L (98-107); COR CA(FOR HYPOALB) 9.3 mg/dL (8.5-10.1); CREATININE 0.77 mg/dL (0.70-1.30); GLUCOSE 92 mg/dL (65-99); POTASSIUM 3.9 mmol/L (3.5-5.1); SODIUM 128 mmol/L (136-145); TOTAL PROTEIN 7.3 g/dL (6.4-8.2); eGFR NON BLACK RACES > 60 (>60)
[2025-05-03 06:40] LABS: INR 1.53 (0.8-1.3)
--- NOTE | 2025-05-03 07:55 | DR.H&P ---
H&P History & Physical for Day of: H&P Date: 05/02/25 Chief Complaint Chief Complaint: weakness, dizziness, low sodium History of Present Illness History of Present Illness: atient with history of alcoholic liver cirrhosis and liver failure on the transplant list following with [facility]. Patient has been sober for almost 1 year. Over the last 2 weeks he has been very weak with no energy and some fatigue. He had labs drawn early this morning and his sodium came back at 122. Patient was recently admitted in February for hyponatremia and the same condition. Patient states about 3 weeks ago he was a bit frustrated with the fluid restrictions and started drinking more water and admits to have gone overboard. He denies any abdominal pain at this time. He is able to tolerate food. No shortness of breath or chest pain. Denies fever. Past Medical History Past Medical History: Hypertension and Liver Disease Past Surgical History Surgical History: Ortho Surgery, Tonsillectomy and Other Family History Family Medical History: Heart Failure and Hypertension Social History Does any household member use tobacco: No Alcohol Use: None Drug Use: None Medications Home Medications: Home Medications Medication Instructions Recorded Confirmed Type metoprolol succinate 50 mg 50 mg PO DAILY 12/01/23 History tablet,extended release 24 hr losartan 50 mg tablet 50 mg PO QDAY 06/05/2405/02 History bumetanide 1 mg tablet 1 mg PO DAILY 02/06/2505/02 History spironolactone 100 mg tablet 100 mg PO DAILY 02/06/25 05/02/25 History Allergies Allergies Allergy/AdvReac Type Severity Reaction Status Date / Time No Known Drug Allergies Allergy Unknown Verified 05/02/25 16:58 Labs 05/03/25 05:57 05/03/25 05:57 Labs: Laboratory WBC 7.6 X10^3/uL (3.6-10.0) 05/03/25 05:57 RBC 5.04 X10^6/uL (4.7-6.0) 05/03/25 05:57 Hgb 14.6 g/dL (13.5-18.0) 05/03/25 05:57 Hct 42.3 % (42.0-54.0) 05/03/25 05:57 MCV 83.9 fL (80.0-100.0) 05/03/25 05:57 MCH 29.0 pg (27.0-34.0) 05/03/25 05:57 MCHC 34.6 g/dL (33.0-35.0) 05/03/25 05:57 RDW 17.6 % (11.6-16.5) H 05/03/25 05:57 Plt Count 110 X10^3/uL (150.0-450.0) L 05/03/25 05:57 MPV 8.4 fL (7.4-11.0) 05/03/25 05:57 Neut % (Auto) 67.1 % (42.0-75.0) 05/03/25 05:57 Lymph % (Auto) 17.9 % (21.0-51.0) L 05/03/25 05:57 [place] % (Auto) 11.1 % (0.0-13.0) 05/03/25 05:57 Eos % (Auto) 3.5 % (0.9-2.9) H 05/03/25 05:57 Baso % (Auto) 0.4 % (0.2-1.0) 05/03/25 05:57 Neut # (Auto) 5.1 x10^3/uL (2.2-4.8) H 05/03/25 05:57 Lymph # (Auto) 1.4 X10^3/uL (1.3-2.9) 05/03/25 05:57 [place] # (Auto) 0.8 x10^3/uL (0.3-0.8) 05/03/25 05:57 Eos # (Auto) 0.3 x10^3/uL (0.0-0.2) H 05/03/25 05:57 Baso # (Auto) 0.0 X10^3/uL (0.0-0.1) 05/03/25 05:57 Absolute Nucleated RBC 0.3 /100WBC 05/03/25 05:57 PT 18.5 SECONDS (11.8-14.3) 05/03/25 05:57 INR Target Range - 05/03/25 05:57 INR 1.53 (0.8-1.3) H 05/03/25 05:57 Sodium 128 mmol/L (136-145) L 05/03/25 05:57 Corrected Sodium TNP 05/03/25 05:57 Potassium 3.9 mmol/L (3.5-5.1) 05/03/25 05:57 Chloride 94 mmol/L (98-107) L 05/03/25 05:57 Carbon Dioxide 27.0 mmol/L (21-32) 05/03/25 05:57 BUN 24 mg/dL (7-18) H 05/03/25 05:57 Creatinine 0.77 mg/dL (0.70-1.30) 05/03/25 05:57 Est GFR (MDRD) Af Amer > 60 (>60) 05/03/25 05:57 Est GFR (MDRD) Non-Af > 60 (>60) 05/03/25 05:57 Glucose 92 mg/dL (65-99) 05/03/25 05:57 Calcium 8.5 mg/dL (8.5-10.1) 05/03/25 05:57 Corrected Calcium 9.3 mg/dL (8.5-10.1) 05/03/25 05:57 Magnesium 2.1 mg/dL (2.0-2.9) 05/02/25 16:54 Total Bilirubin 3.00 mg/dL (0.2-1.0) H 05/03/25 05:57 AST 59 Units/L (15-37) H 05/03/25 05:57 ALT 78 Units/L (12-78) 05/03/25 05:57 Alkaline Phosphatase 238 Units/L (46-116) H 05/03/25 05:57 Ammonia 56 umol/L (11-32) H 05/03/25 05:57 Total Protein 7.3 g/dL (6.4-8.2) 05/03/25 05:57 Albumin 3.0 g/dL (3.4-5.0) L 05/03/25 05:57 Globulin 4.3 g/dL (2.5-4.5) 05/03/25 05:57 Albumin/Globulin Ratio 0.7 Ratio (1.1-2.1) L 05/03/25 05:57 Review of Systems Constitutional: Weakness Eyes: No Symptoms Reported ENT: No Symptoms Reported Respiratory: No Symptoms Reported Cardiovascular: Edema Gastrointestinal: Diarrhea Genitourinary: Frequency Musculoskeletal: No Symptoms Reported Skin: Jaundice Neurological: Weakness and Incoordination (mild related to hyponatremia); denies Seizures Physical Exam Vital Signs: Vital Signs Temperature 97.8 F Temperature 97.7 F Pulse Rate [Bilateral Radial] 86 Pulse Rate [Bilateral Radial] 94 Respiratory Rate 18 Respiratory Rate 18 Blood Pressure [Right Arm] 125/82 Blood Pressure [Right Arm] 130/81 O2 Sat by Pulse Oximetry 98 O2 Sat by Pulse Oximetry 96 Oriented: Normal Eyes: negative Blurred Vision Ear: Normal Nose: Normal Throat: Normal Respiratory: RLL Diminished and LLL Diminished Cardiovascular: Edema Auscultation: Bowel Sounds: Normal Palpation: Liver Enlarged Tenderness: Diffuse and Mild Skin: Decreased Turgur Musculoskeletal: Normal Psychiatric: Normal Mood Description: Calm Affect: Quiet Speech Pattern: Clear, Appropriate and Delayed (mild delay) Assessment/Plan (1) Hyponatremia: Status: Acute Plan: IV HYDRATION, LACTULOSE BP CONTROL DAILY PT/INR, AMMONIA LEVEL STRICT I&OS, VERIFY AND RESUME (2) Hyperammonemia: Status: Acute (3) Liver cirrhosis: Qualifiers: Ascites presence: with ascites Hepatic cirrhosis type: alcoholic cirrhosis Qualified Code(s): K70.31 - Alcoholic cirrhosis of liver with ascites Status: Acute (4) Ascites: Qualifiers: Ascites type: other type Qualified Code(s): R18.8 - Other ascites Status: Acute (5) Dizziness: Status: Acute (6) Liver cirrhosis: Status: Acute
[2025-05-03] MEDS: COZAAR PO SCH (09:37)
[2025-05-03] MEDS: PROTONIX INJ 40 MG VIAL IVP SCH (09:37)
[2025-05-03] MEDS: ALDACTONE TAB 25 MG PO SCH (09:38)
[2025-05-03] MEDS: TOPROL XL PO SCH (09:38)
[2025-05-03] MEDS: ALBUMIN HUMAN 25%- 100 ML 100 ML IV SCH (14:40)
--- NOTE | 2025-05-03 14:47 | CT ---
EXAM: ABDOMEN/PELVIS W/O CON HISTORY: ascites; COMPARISON: CT abdomen and pelvis 12/28/2024 TECHNIQUE: Multiple CT axial images of the abdomen and pelvis were obtained without IV contrast. Coronal and sagittal images were reconstructed. Dose reduction techniques included Automated Exposure Control (AEC) and adjustment of mA and kV. FINDINGS: Linear scarring in the left lung base is not significantly changed. Otherwise the lung bases are clear. Heart size is normal. Large volume ascites is present. This could be marginally less than on the study from December 2024. The liver has a cirrhotic morphology. No liver mass or biliary dilatation. Possible tiny calcified gallstone seen in the dependent lumen. The spleen is large measuring over 17 cm but not changed from December 2024. The adrenal glands are normal. The pancreas is normal. No abnormal calcifications are present in the kidneys, ureters, or urinary bladder. The kidneys have normal size and shape. There is no hydronephrosis or significant perirenal edema. No bladder wall thickening. Nonspecific gastric wall thickening and duodenal wall thickening is present. This is associated with edema in the retroperitoneum mostly centered around the 2nd and 3rd segments of the duodenum. The findings are nonspecific. Differential diagnosis includes gastroenteritis, peptic ulcer disease, or portal enteropathy. There is no bowel dilatation. A few diverticula are seen in the sigmoid colon but there are no focal inflammatory changes to suggest diverticulitis. Minimal degenerative spondylitic changes are present in the spine. Minimal T8 compression fracture is unchanged from prior study. IMPRESSION: 1. Nonspecific gastric and duodenum wall thickening with edema, see note 2. Hepatic cirrhosis with related ancillary findings 3. Large volume ascites, possibly decreased 4. Probable cholelithiasis 5. Few colonic diverticula THIS IS AN ELECTRONICALLY VERIFIED FINAL REPORT 05/03/2025 2:44 PM - Electronically signed by Raymundo Davison MD
[2025-05-04 06:33] LABS: BASOPHILS # (AUTO) 0.1 X10^3/uL (0.0-0.1); EOSINOPHILS # (AUTO) 0.2 x10^3/uL (0.0-0.2); EOSINOPHILS % (AUTO) 2.1 % (0.9-2.9); HEMATOCRIT 42.9 % (42.0-54.0); HEMOGLOBIN 15.2 g/dL (13.5-18.0); LYMPHOCYTES # (AUTO) 1.2 X10^3/uL (1.3-2.9); MEAN CORPUSCULAR HEMOGLOBIN 29.2 pg (27.0-34.0); MEAN CORPUSCULAR HGB CONC 35.3 g/dL (33.0-35.0); MEAN CORPUSCULAR VOLUME 82.7 fL (80.0-100.0); MONOCYTES # (AUTO) 1.2 x10^3/uL (0.3-0.8); NEUTROPHILS # (AUTO) 7.9 x10^3/uL (2.2-4.8); NEUTROPHILS % (AUTO) 74.9 % (42.0-75.0); PLATELET COUNT 116 X10^3/uL (150.0-450.0); RED BLOOD COUNT 5.19 X10^6/uL (4.7-6.0); RED CELL DISTRIBUTION WIDTH 17.9 % (11.6-16.5); WHITE BLOOD COUNT 10.5 X10^3/uL (3.6-10.0)
[2025-05-04 06:35] LABS: AMMONIA 63 umol/L (11-32)
[2025-05-04 06:45] LABS: ALANINE AMINOTRANSFERASE 72 Units/L (12-78); ALBUMIN 3.1 g/dL (3.4-5.0); ALKALINE PHOSPHATASE 203 Units/L (46-116); ASPARTATE AMINO TRANSFERASE 55 Units/L (15-37); BLOOD UREA NITROGEN 23 mg/dL (7-18); CALCIUM 8.4 mg/dL (8.5-10.1); CARBON DIOXIDE 23.4 mmol/L (21-32); CHLORIDE 94 mmol/L (98-107); COR CA(FOR HYPOALB) 9.1 mg/dL (8.5-10.1); CREATININE 0.87 mg/dL (0.70-1.30); GLUCOSE 87 mg/dL (65-99); SODIUM 127 mmol/L (136-145); TOTAL PROTEIN 6.8 g/dL (6.4-8.2); eGFR NON BLACK RACES > 60 (>60)
--- NOTE | 2025-05-04 07:39 | RAD ---
EXAM: AP chest HISTORY: SOB COMPARISON: None .br.br stranding in both perihilar areas and left base. No lobar consolidation, mass formation or pleural fluid is noted. IMPRESSION: Bilateral linear infiltrates are nonspecific on this initial exam, and may represent chronic peribronchial scarring or a more acute inflammatory process. Follow-up suggested. THIS IS AN ELECTRONICALLY VERIFIED FINAL REPORT 05/04/2025 7:35 AM - Electronically signed by Jasbir Pleitez MD
[2025-05-04 08:26] VITALS: RESP 16
[2025-05-04 11:56] VITALS: O2SAT 98
[2025-05-04 16:45] VITALS: BP 102/63; PULSE 67; TEMP 98.9
== END 2025-05-04 18:45 | disposition home or self-care (01) | DRG 433 ==
LOC: SUPCPDRO → ER 16:38 → MED/SURG 20:01
PROVIDERS: ADMIT Internal Medicine; ATTEND Internal Medicine
DX: R53.1 Weakness; G93.49 Other encephalopathy; E80.6 Other disorders of bilirubin metabolism; R42 Dizziness and giddiness; E87.1 Hypo-osmolality and hyponatremia; R79.1 Abnormal coagulation profile; R06.02 Shortness of breath; K70.31 Alcoholic cirrhosis of liver with ascites; E88.09 Other disorders of plasma-protein metabolism, not elsewhere classified; I10 Essential (primary) hypertension

== ENCOUNTER 2025-05-17 18:30 | Inpatient (IN) ==
[2025-05-17] MEDS ORDERED: ZOFRAN INJ 4 MG VIAL ONE (18:35)
[2025-05-17] MEDS: ZOFRAN INJ 4 MG VIAL IVP ONE ×2 (18:40→20:34)
--- NOTE | 2025-05-17 18:56 | DR.DIZZY ---
HPI Time seen Time Seen by Provider: 05/17/25 18:54 PCP Primary Care Physician: ferdinand griffiths Complaint Chief Complaint Doctor Comments: This patient complained of weakness and vomiting blood x 3 today. He has a history of cirrhosis. Chief Complaint:: pt to ER via EMS with compliant of weakness and vomiting up blood x today COVID-19 Coronavirus risk:travel/contact w/high risk person: No Has patient experienced Coronavirus symptoms: No Source History Provided: Patient Mode of Arrival Mode of Arrival: EMS Timing Onset of Chief Complaint: 05/17/25 Context Stroke Symptoms: None PMH PMH Past Medical History: Yes Past Medical History: Cirrhosis, Hypertension and Liver Disease Past Surgical History: Yes Surgical History: Ortho Surgery, Tonsillectomy and Other Family History History of Family Medical Conditions: Yes Family Medical History: Heart Failure and Hypertension Social History Does any household member use tobacco: No Alcohol Use: None Do you use any recreational Drugs:: No Lives With: Family Lives Where: Home Travel Risk Coronavirus risk:travel/contact w/high risk person: No Has patient experienced Coronavirus symptoms: No Infectious screening In the last 2 months have you had wt loss of >10#?: NO Have you had fever, night sweats or hemotysis?: No Have you traveled outside the country in the last 6 months?: No Isolation: Standard ROS Review of Systems Constitutional: Other (upper gi bleed ,cirrhosis,ascites and hypotension) Eyes: No Symptoms Reported ENTM: No Symptoms Reported Respiratoy: No Symptoms Reported Cardiovascular: No Symptoms Reported Gastrointestinal/Abdominal: Nausea and Other (ascites,bloating and upper gi bleed) Genitourinary: No Symptoms Reported Neurological: No Symptoms Reported Musculoskeletal: No Symptoms Reported Integumentary: No Symptoms Reported Hematologic/Lymphatic: No Symptoms Reported Endocrine: No Symptoms Reported Psychiatric: No Symptoms Reported PE Vital Signs Vitals: Vital Signs Temperature 97.6 F Pulse Rate [Left Brachial] 110 Pulse Rate [Left Brachial] 102 Pulse Rate 97 Pulse Rate 102 Pulse Rate 100 Pulse Rate 97 Pulse Rate 89 Respiratory Rate 18 Respiratory Rate 18 Respiratory Rate 22 Respiratory Rate 18 Respiratory Rate 20 Blood Pressure [Left Arm] 104/63 Blood Pressure [Left Arm] 112/67 Blood Pressure 111/70 Blood Pressure 112/67 Blood Pressure 94/70 Blood Pressure 96/63 Blood Pressure 87/59 Blood Pressure 83/54 O2 Sat by Pulse Oximetry 100 O2 Sat by Pulse Oximetry 100 O2 Sat by Pulse Oximetry 100 O2 Sat by Pulse Oximetry 100 O2 Sat by Pulse Oximetry 100 O2 Sat by Pulse Oximetry 97 O2 Sat by Pulse Oximetry 99 General Limitations: Physical Limitation (due to ascites,cirrhosis and lethargy) General Appearance: In Distress (moderate distress) Head Head Exam: Normal Inspection Eyes Eye exam: Normal Appearance, PERRL and EOMI Pupils: Regular, Round: Bilateral ENT ENT Exam: Normal Exam Neck Neck Exam: Normal Inspection Chest Chest Inspection: Normal Inspection and Symmetric Chest Wall Rise Respiratory Respiratory Exam: Normal Lung Sounds Bilat Respiratory Exam: Bilateral: Clear to Auscultation Cardiovascular Cardiovascular Exam: Regular Rate Abdominal Exam Abdominal Exam: Distention and Ascites Rectal Rectal Exam: Deferred Extremeties Extremities Exam: Normal Inspection Back Back Exam: Normal Inspection Neurologic Neurological Exam: Oriented X3 Patient Oriented To: Person, Place and Time Speech: Fluid Speech Motor Strength - LUE: 3/5 Motor Strength - RUE: 3/5 Motor Strength - LLE: 3/5 Motor Strength - RLE: 3/5 Psychiatric Psychiatric Exam: Depressed MDM Differential Diagnosis Differential Diagnosis: Anemia, Electrolyte disorder and Other (cirrhosis,ascites,upper gi bleed,sepsis) COURSE Treatment Treatment: This patient remained relatively stable during ER evaluation except for his blood pressure Going down we did give him some fluids bolus fluids and then moved out from the high 80s systolic did not move up. 90s systolic. Will continue to watch the patient and he did have an episode of some vomiting with some coffee ground type emesis. We did test that it was positive on the Gastroccult. Patient did come initially complaining of some upper GI bleeding he has history of cirrhosis so we were looking at these cirrhosis they initially wanted to be transferred to hospital at [facility] but we were not able to get them there initially because we do have a GI ER surgeon here Evaluate them we did talk to him about this process and we eventually talked to the patient and they said they would be okay with Dr. Richey checking on him further since he had actually down some of the fluid or ascites by doing the paracentesis before with this patient. I did talk to Dr. Richey at 2345 for and he stated he would start the patient but since he had a low blood pressure during that time to get the ammonia level and do a lactic acid level on the patient we did get a lactic acid level on the patient and the initial 1 was 5.7. We did get some other labs on the patient and the WBC was 16.9 we did a metabolic panel sodium was 126 potassium was 5.6 had a BUN 36 creatinine was 1.62 blood sugar was 81 had a GFR of 46. We did do a lipase that was 135 and amylase was 24. We did a CT scan of the abdomen and pelvis did show that there was unchanged cirrhosis with splenomegaly and ascites present. This patient did have blood cultures drawn and we did give him another liter of fluids and started his fluids going at 125 cc an hour afterwards. The patient was also given Zosyn 3.375 IV and was given Protonix 40 mg also IV. We will continue with the scheduled Zosyn 3.[address] Richey will have the patient admitted to him and will follow this patient for the upper GI bleed. I spoke to Dr. Lilinaa Caal about this patient and the fact that had already spoken to Dr. Richey but since the patient is not septic then we obviously admitted on the medical and have Dr. Richey consult for upper GI bleeding ascites so Dr. Rosas did this up the patient on the medical to further treat for the sepsis and knowing that he is going to be consulted by Dr. stanley. ROR Labs Reviewed Laboratory Results Reviewed?: Yes 05/17/25 19:00 05/17/25 19:00 Laboratory: WBC 16.9 X10^3/uL (3.6-10.0) H D 05/17/25 19:00 RBC 4.43 X10^6/uL (4.7-6.0) L 05/17/25 19:00 Hgb 12.9 g/dL (13.5-18.0) L D 05/17/25 19:00 Hct 38.2 % (42.0-54.0) L 05/17/25 19:00 MCV 86.1 fL (80.0-100.0) 05/17/25 19:00 MCH 29.1 pg (27.0-34.0) 05/17/25 19:00 MCHC 33.7 g/dL (33.0-35.0) 05/17/25 19:00 RDW 17.9 % (11.6-16.5) H 05/17/25 19:00 Plt Count 200 X10^3/uL (150.0-450.0) 05/17/25 19:00 Plt Count Comment Adequate (ADEQUATE) 05/17/25 19:00 MPV 8.2 fL (7.4-11.0) 05/17/25 19:00 Neut % (Auto) 87.1 % (42.0-75.0) H 05/17/25 19:00 Lymph % (Auto) 6.7 % (21.0-51.0) L 05/17/25 19:00 [place] % (Auto) 5.4 % (0.0-13.0) 05/17/25 19:00 Eos % (Auto) 0.3 % (0.9-2.9) L 05/17/25 19:00 Baso % (Auto) 0.5 % (0.2-1.0) 05/17/25 19:00 Neut # (Auto) 14.8 x10^3/uL (2.2-4.8) H 05/17/25 19:00 Lymph # (Auto) 1.1 X10^3/uL (1.3-2.9) L 05/17/25 19:00 [place] # (Auto) 0.9 x10^3/uL (0.3-0.8) H 05/17/25 19:00 Eos # (Auto) 0.0 x10^3/uL (0.0-0.2) 05/17/25 19:00 Baso # (Auto) 0.1 X10^3/uL (0.0-0.1) 05/17/25 19:00 Absolute Nucleated RBC 0.1 /100WBC 05/17/25 19:00 Total Counted 100 05/17/25 19:00 Neutrophils % (Manual) 95 % (39-76) H 05/17/25 19:00 Lymphocytes % (Manual) 3 % (13-43) L 05/17/25 19:00 Monocytes % (Manual) 2 % (4-9) L 05/17/25 19:00 Plt Morphology Comment Normal (NORMAL) 05/17/25 19:00 RBC Morphology Abnormal (NORMAL) 05/17/25 19:00 Anisocytosis Slight A 05/17/25 19:00 PT 22.3 SECONDS (11.8-14.3) 05/17/25 19:00 INR Target Range - 05/17/25 19:00 INR 1.94 (0.8-1.3) H 05/17/25 19:00 APTT 35.3 SECONDS (22.9-36.5) 05/17/25 19:00 PTT Comment - 05/17/25 19:00 Sodium 126 mmol/L (136-145) L 05/17/25 19:00 Corrected Sodium TNP 05/17/25 19:00 Potassium 5.6 mmol/L (3.5-5.1) H 05/17/25 19:00 Chloride 92 mmol/L (98-107) L 05/17/25 19:00 Carbon Dioxide 22.9 mmol/L (21-32) 05/17/25 19:00 BUN 36 mg/dL (7-18) H 05/17/25 19:00 Creatinine 1.62 mg/dL (0.70-1.30) H 05/17/25 19:00 Est GFR (MDRD) Af Amer 58 (>60) L 05/17/25 19:00 Est GFR (MDRD) Non-Af 48 (>60) L 05/17/25 19:00 Glucose 81 mg/dL (65-99) 05/17/25 19:00 Lactic Acid 4.3 mmol/L (0.4-2.0) H* 05/18/25 02:05 Calcium 8.7 mg/dL (8.5-10.1) 05/17/25 19:00 Corrected Calcium 9.7 mg/dL (8.5-10.1) 05/17/25 19:00 Total Bilirubin 4.90 mg/dL (0.2-1.0) H 05/17/25 19:00 AST 126 Units/L (15-37) H 05/17/25 19:00 ALT 125 Units/L (12-78) H 05/17/25 19:00 Alkaline Phosphatase 195 Units/L (46-116) H 05/17/25 19:00 Ammonia 184 umol/L (11-32) H 05/18/25 00:01 Total Protein 6.3 g/dL (6.4-8.2) L 05/17/25 19:00 Albumin 2.7 g/dL (3.4-5.0) L 05/17/25 19:00 Globulin 3.6 g/dL (2.5-4.5) 05/17/25 19:00 Albumin/Globulin Ratio 0.8 Ratio (1.1-2.1) L 05/17/25 19:00 Amylase 24 Units/L (25-115) L 05/17/25 19:00 Lipase 135 Units/L (16-77) H 05/17/25 19:00 Specimen Type Random urine 05/17/25 21:56 Urine Color Kiki (YELLOW) 05/17/25 21:56 Urine Appearance Cloudy (CLEAR) 05/17/25 21:56 Urine pH 5.0 (5.0 - 8.0) 05/17/25 21:56 Ur Specific [place] 1.020 (1.000-1.030) 05/17/25 21:56 Urine Protein 3+ (NEGATIVE) 05/17/25 21:56 Urine Glucose (UA) Negative (NEGATIVE) 05/17/25 21:56 Urine Ketones 1+ (NEGATIVE) 05/17/25 21:56 Urine Blood 1+ (NEGATIVE) 05/17/25 21:56 Urine Nitrite Negative (NEGATIVE) 05/17/25 21:56 Urine Bilirubin 2+ (NEGATIVE) 05/17/25 21:56 Urine Urobilinogen 2+ (NORMAL) 05/17/25 21:56 Ur Leukocyte Esterase 1+ (NEGATIVE) 05/17/25 21:56 Urine RBC 5-10 /HPF (0-3) A 05/17/25 21:56 Urine WBC 5-10 /HPF (0-5) A 05/17/25 21:56 Ur Squamous Epith Cells Numerous /HPF (NEGATIVE) 05/17/25 21:56 Uric Acid Crystals Numerous /HPF (NEGATIVE) 05/17/25 21:56 Urine Bacteria 1+ /HPF (NEGATIVE) 05/17/25 21:56 Hyaline Casts Numerous /LPF (NEGATIVE) 05/17/25 21:56 Urine Mucus Moderate /HPF (NEGATIVE) 05/17/25 21:56 Ur Culture Indicated? No/not indicated 05/17/25 21:56 Gastric Fluid pH 4 05/17/25 20:45 Gastric Occult Blood Positive (NEGATIVE) A 05/17/25 20:45 Urine Opiates Screen Negative (NEG=<300) 05/17/25 21:56 Urine Methadone Screen Negative (NEG=<300) 05/17/25 21:56 Ur Barbiturates Screen Negative (NEG=<200) 05/17/25 21:56 Ur Phencyclidine Scrn Negative (NEG=<25) 05/17/25 21:56 Ur Amphetamines Screen Negative (NEG=<1000) 05/17/25 21:56 U Benzodiazepines Scrn Negative (NEG=<200) 05/17/25 21:56 Urine Cocaine Screen Negative (NEG=<300) 05/17/25 21:56 U Marijuana (THC) Screen Negative (NEG=<50) 05/17/25 21:56 Ethyl Alcohol mg/dL 4 mg/dL (0-19.9) 05/17/25 19:00 Opioid Opioid Risk Tool Age (Cristobal box if 16-45): No History of Preadolescent Sexual Abuse: No Total: 0 Total Score Risk Category: Low Risk Copyright: Arjun ROMERO predicting aberrant behaviors Discharge Plan Diagnosis Discharge Problem: Sepsis, Acute upper gastrointestinal bleeding, Ascites, Cirrhosis Discharge Plan Patient Disposition: ADMITTED INPATIENT Condition: Stable Orders to Discharge Patient Discharge Orders: Transfer (Routine); Ordered 05/18/25 Ordered By: Clinotn Rick
[2025-05-17 19:19] LABS: MEAN PLATELET VOLUME 8.2 fL (7.4-11.0); RED CELL DISTRIBUTION WIDTH 17.9 % (11.6-16.5)
[2025-05-17 19:21] LABS: BLOOD ALCOHOL 4 mg/dL (0-19.9); COR CA(FOR HYPOALB) 9.7 mg/dL (8.5-10.1); CREATININE 1.62 mg/dL (0.70-1.30); eGFR NON BLACK RACES 48 (>60)
[2025-05-17 19:23] LABS: INR 1.94 (0.8-1.3)
[2025-05-17] MEDS: NS 1,000 ML IV 1,000 ML IV ONE (19:42)
[2025-05-17 19:59] LABS: PLATELET MORPHOLOGY COMMENT NORMAL (NORMAL)
[2025-05-17] MEDS ORDERED: PROTONIX INJ 40 MG VIAL ONE (20:33)
[2025-05-17] MEDS: PROTONIX INJ 40 MG VIAL IVP ONE (20:35)
[2025-05-17 20:50] LABS: GASTRIC OCCULT BLOOD POSITIVE (NEGATIVE); PH,GASTRIC FLUID 4
--- NOTE | 2025-05-17 22:23 | CT ---
PROCEDURE: CT Abdomen and Pelvis without IV Contrast. HISTORY: Hematemesis and today with asthenia. TECHNIQUE: Axial images were performed through the abdomen and pelvis without the administration of IV contrast with multiplanar reformations . Oral contrast was notadministered . Dose reduction techniques including Automated Exposure Control (AEC) and adjustment of mA and kV were utilized .. COMPARISON: 05/03/2025. TECHNICAL QUALITY: Satisfactory. FINDINGS: Linear scar versus discoid atelectasis left lung base. Irregular liver contour consistent with cirrhosis. Splenomegaly. Adrenals and pancreas show no abnormality. Kidneys show no stones or obstruction. Moderate ascites throughout the abdomen and pelvis is unchanged. No pneumoperitoneum. Mild atherosclerosis aorta. No lymphadenopathy. No bowel obstruction or inflammation. Minimal colonic diverticulosis. Appendix appears normal. Pelvis is filled with fluid and no masses. Normal urinary bladder. No acute bony abnormality. IMPRESSION: 1. Unchanged cirrhosis with splenomegaly and ascites. 2. Minimal colonic diverticulosis. THIS IS AN ELECTRONICALLY VERIFIED FINAL REPORT 05/17/2025 10:19 PM - Electronically signed by Benito Capone MD
[2025-05-17 23:51] LABS: BLOOD/HEMOGLOBIN,URINE 1+ (NEGATIVE); LEUKOCYTE ESTERASE ,URINE 1+ (NEGATIVE); NITRITES,URINE NEGATIVE (NEGATIVE)
[2025-05-17 23:54] LABS: APPEARANCE,URINE CLOUDY (CLEAR)
[2025-05-17 23:59] LABS: SQUAMOUS EPITHELIAL CELL,UR NUMEROUS /HPF (NEGATIVE)
[2025-05-18] LABS: HYALINE CASTS, URINE NUMEROUS /LPF (NEGATIVE)
[2025-05-18] MEDS ORDERED: NS 100 ML IV 100 ML ONE (01:19)
[2025-05-18] MEDS ORDERED: ZOSYN VIAL 3.375 GRAMS IV ONE (01:19)
[2025-05-18] MEDS ORDERED: NS 1,000 ML IV 1,000 ML ONE (01:19)
[2025-05-18] MEDS: ZOSYN VIAL 3.375 GRAMS 3.375 G in NS 100 ML IV 100 ML IV SCH ×2 (01:26→12:22)
[2025-05-18] MEDS: NS 1,000 ML IV 1,000 ML IV ONE (01:28)
[2025-05-18] MEDS: NS 1,000 ML IV 1,000 ML IV SCH (03:00)
[2025-05-18] MEDS ORDERED: NS 250 ML IV 25 ML IV PRN ×2 (04:31→09:58)
[2025-05-18] MEDS ORDERED: ZOSYN VIAL 2.25 GRAMS 2.25 G in NS 100 ML IV 100 ML IV SCH ×2 (04:31→14:00)
[2025-05-18 04:43] LABS: MEAN PLATELET VOLUME 8.1 fL (7.4-11.0); RED CELL DISTRIBUTION WIDTH 18.1 % (11.6-16.5)
[2025-05-18 04:52] LABS: COR CA(FOR HYPOALB) 9.7 mg/dL (8.5-10.1); CREATININE 1.21 mg/dL (0.70-1.30); eGFR NON BLACK RACES > 60 (>60)
[2025-05-18 05:21] VITALS: BMI 28.5
--- NOTE | 2025-05-18 07:24 | RAD ---
EXAM: CHEST HISTORY: weakness; COMPARISON: br.br.br.br.br.br was submitted for interpretation. FINDINGS: The cardiomediastinal silhouette is within normal limits. Lungs show no focal consolidation, pneumothorax, or pleural fluid. IMPRESSION: No acute cardiopulmonary process. THIS IS AN ELECTRONICALLY VERIFIED FINAL REPORT 05/18/2025 7:21 AM - Electronically signed by Segundo Avery MD
[2025-05-18] MEDS: PROTONIX INJ 40 MG VIAL IVP SCH (09:49)
[2025-05-18] MEDS ORDERED: MILK OF MAGNESIA PO PRN (11:19)
[2025-05-18] MEDS ORDERED: LIBRIUM PO PRN (11:19)
[2025-05-18] MEDS ORDERED: PHENOBARBITAL SODIUM INJ 65 MG VIAL IM PRN (11:19)
[2025-05-18] MEDS ORDERED: KAOPECTATE (NEW FORMULA) PO PRN (11:19)
[2025-05-18] MEDS ORDERED: MAALOX or MYLANTA PO PRN (11:19)
[2025-05-18] MEDS: THIAMINE HCL INJ IM SCH (12:14)
[2025-05-18] MEDS: TOPROL XL PO SCH (12:14)
[2025-05-18] MEDS: CHRONULAC PO SCH (12:14)
[2025-05-18] MEDS: MAGNESIUM SULFATE 1 GRAM/100 mL PREMIX 1 G/100 ML BAG IV SCH (12:15)
[2025-05-18] MEDS: PHENOBARBITAL TAB 30 MG (32.4MG) PO SCH (12:21)
--- NOTE | 2025-05-18 12:27 | DR.H&P ---
H&P History & Physical for Day of: H&P Date: 05/18/25 Chief Complaint Chief Complaint: abdominal distention confusion History of Present Illness History of Present Illness: Patient is a 50-year-old male with a past medical history of cirrhosis, Alcohol use disorder, and hypertension presenting with altered mental status and abdominal distention. He reports also having weakness and had vomited some blood. Patient denies fevers or chills. Labs/imaging: WBC 13.1, hemoglobin 11.4, platelets 149, sodium 129, potassium 5.3, creatinine 1.21, glucose 98, lactic acid 3.3, Ammonia 184. UA negative, chest x-ray negative, CT abdomen pelvis revealed cirrhosis and ascites. Blood culture pending. Patient was admitted for hyperammonemia, ascites, lactic acidosis, hyponatremia, and possible GI bleed. He was started on IV fluids. General surgeryDr. Al was consulted and plans to do a paracentesis today. Recommend monitoring hemoglobin at this time. Patient is on Protonix. Will also continue antibiotics Zosyn for prophylaxis. Monitor for any signs of alcohol withdrawal. Restart some home medications, including lactulose. Start home metoprolol but hold other anti-hypertensive medications. Otherwise continue with current treatment plan. Continue closely monitor and follow-up labs/imaging. Time spent for clinical assessment, reviewing labs/imaging, physical exam, decision making and documentation greater than 45 mins. Past Medical History Past Medical History: Cirrhosis, Hypertension and Liver Disease Past Surgical History Surgical History: Unknown, Ortho Surgery, Tonsillectomy and Other Family History Family Medical History: Heart Failure and Hypertension Social History Does patient currently use any type of tobacco product: No Type of Tobacco Use: None Does any household member use tobacco: No Alcohol Use: DAILY Drug Use: None Medications Home Medications: Home Medications Medication Instructions Recorded Confirmed Type metoprolol succinate 50 mg 50 mg PO DAILY 12/01/2310/31 History tablet,extended release 24 hr bumetanide 1 mg tablet 1 mg PO DAILY 02/06/2505/18 History spironolactone 100 mg tablet 100 mg PO QAM 02/06/25 History Allergies Allergies Allergy/AdvReac Type Severity Reaction Status Date / Time No Known Drug Allergies Allergy Unknown Verified 05/02/25 16:58 Labs 05/18/25 04:11 05/18/25 04:11 Labs: Laboratory WBC 13.1 X10^3/uL (3.6-10.0) H 05/18/25 04:11 RBC 3.81 X10^6/uL (4.7-6.0) L 05/18/25 04:11 Hgb 11.4 g/dL (13.5-18.0) L 05/18/25 04:11 Hct 32.3 % (42.0-54.0) L 05/18/25 04:11 MCV 85.0 fL (80.0-100.0) 05/18/25 04:11 MCH 30.0 pg (27.0-34.0) 05/18/25 04:11 MCHC 35.3 g/dL (33.0-35.0) H 05/18/25 04:11 RDW 18.1 % (11.6-16.5) H 05/18/25 04:11 Plt Count 149 X10^3/uL (150.0-450.0) L 05/18/25 04:11 Plt Count Comment Adequate (ADEQUATE) 05/17/25 19:00 MPV 8.1 fL (7.4-11.0) 05/18/25 04:11 Neut % (Auto) 81.4 % (42.0-75.0) H 05/18/25 04:11 Lymph % (Auto) 10.6 % (21.0-51.0) L 05/18/25 04:11 [place] % (Auto) 7.7 % (0.0-13.0) 05/18/25 04:11 Eos % (Auto) 0.1 % (0.9-2.9) L 05/18/25 04:11 Baso % (Auto) 0.2 % (0.2-1.0) 05/18/25 04:11 Neut # (Auto) 10.7 x10^3/uL (2.2-4.8) H 05/18/25 04:11 Lymph # (Auto) 1.4 X10^3/uL (1.3-2.9) 05/18/25 04:11 [place] # (Auto) 1.0 x10^3/uL (0.3-0.8) H 05/18/25 04:11 Eos # (Auto) 0.0 x10^3/uL (0.0-0.2) 05/18/25 04:11 Baso # (Auto) 0.0 X10^3/uL (0.0-0.1) 05/18/25 04:11 Absolute Nucleated RBC 0.0 /100WBC 05/18/25 04:11 Total Counted 100 05/17/25 19:00 Neutrophils % (Manual) 95 % (39-76) H 05/17/25 19:00 Lymphocytes % (Manual) 3 % (13-43) L 05/17/25 19:00 Monocytes % (Manual) 2 % (4-9) L 05/17/25 19:00 Plt Morphology Comment Normal (NORMAL) 05/17/25 19:00 RBC Morphology Abnormal (NORMAL) 05/17/25 19:00 Anisocytosis Slight A 05/17/25 19:00 PT 22.3 SECONDS (11.8-14.3) 05/17/25 19:00 INR Target Range - 05/17/25 19:00 INR 1.94 (0.8-1.3) H 05/17/25 19:00 APTT 35.3 SECONDS (22.9-36.5) 05/17/25 19:00 PTT Comment - 05/17/25 19:00 Sodium 129 mmol/L (136-145) L 05/18/25 04:11 Corrected Sodium TNP 05/18/25 04:11 Potassium 5.3 mmol/L (3.5-5.1) H 05/18/25 04:11 Chloride 97 mmol/L (98-107) L 05/18/25 04:11 Carbon Dioxide 23.4 mmol/L (21-32) 05/18/25 04:11 BUN 47 mg/dL (7-18) H 05/18/25 04:11 Creatinine 1.21 mg/dL (0.70-1.30) 05/18/25 04:11 Est GFR (MDRD) Af Amer > 60 (>60) 05/18/25 04:11 Est GFR (MDRD) Non-Af > 60 (>60) 05/18/25 04:11 Glucose 98 mg/dL (65-99) 05/18/25 04:11 Lactic Acid 3.3 mmol/L (0.4-2.0) H 05/18/25 08:20 Calcium 8.3 mg/dL (8.5-10.1) L 05/18/25 04:11 Corrected Calcium 9.7 mg/dL (8.5-10.1) 05/18/25 04:11 Total Bilirubin 5.30 mg/dL (0.2-1.0) H 05/18/25 04:11 AST 1089 Units/L (15-37) H 05/18/25 04:11 ALT 896 Units/L (12-78) H 05/18/25 04:11 Alkaline Phosphatase 150 Units/L (46-116) H 05/18/25 04:11 Ammonia 184 umol/L (11-32) H 05/18/25 00:01 Total Protein 5.6 g/dL (6.4-8.2) L 05/18/25 04:11 Albumin 2.3 g/dL (3.4-5.0) L 05/18/25 04:11 Globulin 3.3 g/dL (2.5-4.5) 05/18/25 04:11 Albumin/Globulin Ratio 0.7 Ratio (1.1-2.1) L 05/18/25 04:11 Amylase 24 Units/L (25-115) L 05/17/25 19:00 Lipase 135 Units/L (16-77) H 05/17/25 19:00 Specimen Type Random urine 05/17/25 21:56 Urine Color Kiki (YELLOW) 05/17/25 21:56 Urine Appearance Cloudy (CLEAR) 05/17/25 21:56 Urine pH 5.0 (5.0 - 8.0) 05/17/25 21:56 Ur Specific [place] 1.020 (1.000-1.030) 05/17/25 21:56 Urine Protein 3+ (NEGATIVE) 05/17/25 21:56 Urine Glucose (UA) Negative (NEGATIVE) 05/17/25 21:56 Urine Ketones 1+ (NEGATIVE) 05/17/25 21:56 Urine Blood 1+ (NEGATIVE) 05/17/25 21:56 Urine Nitrite Negative (NEGATIVE) 05/17/25 21:56 Urine Bilirubin 2+ (NEGATIVE) 05/17/25 21:56 Urine Urobilinogen 2+ (NORMAL) 05/17/25 21:56 Ur Leukocyte Esterase 1+ (NEGATIVE) 05/17/25 21:56 Urine RBC 5-10 /HPF (0-3) A 05/17/25 21:56 Urine WBC 5-10 /HPF (0-5) A 05/17/25 21:56 Ur Squamous Epith Cells Numerous /HPF (NEGATIVE) 05/17/25 21:56 Uric Acid Crystals Numerous /HPF (NEGATIVE) 05/17/25 21:56 Urine Bacteria 1+ /HPF (NEGATIVE) 05/17/25 21:56 Hyaline Casts Numerous /LPF (NEGATIVE) 05/17/25 21:56 Urine Mucus Moderate /HPF (NEGATIVE) 05/17/25 21:56 Ur Culture Indicated? No/not indicated 05/17/25 21:56 Gastric Fluid pH 4 05/17/25 20:45 Gastric Occult Blood Positive (NEGATIVE) A 05/17/25 20:45 Urine Opiates Screen Negative (NEG=<300) 05/17/25 21:56 Urine Methadone Screen Negative (NEG=<300) 05/17/25 21:56 Ur Barbiturates Screen Negative (NEG=<200) 05/17/25 21:56 Ur Phencyclidine Scrn Negative (NEG=<25) 05/17/25 21:56 Ur Amphetamines Screen Negative (NEG=<1000) 05/17/25 21:56 U Benzodiazepines Scrn Negative (NEG=<200) 05/17/25 21:56 Urine Cocaine Screen Negative (NEG=<300) 05/17/25 21:56 U Marijuana (THC) Screen Negative (NEG=<50) 05/17/25 21:56 Ethyl Alcohol mg/dL 4 mg/dL (0-19.9) 05/17/25 19:00 Review of Systems Constitutional: Weakness Eyes: No Symptoms Reported ENT: No Symptoms Reported Respiratory: No Symptoms Reported Cardiovascular: No Symptoms Reported Gastrointestinal: Abdominal Pain Genitourinary: No Symptoms Reported Musculoskeletal: No Symptoms Reported Skin: No Symptoms Reported Neurological: No Symptoms Reported Physical Exam Vital Signs: Vital Signs Temperature 97.9 F Pulse Rate [Left Brachial] 102 Pulse Rate [Left Brachial] 103 Pulse Rate [Left Brachial] 107 Pulse Rate [Left Brachial] 107 Respiratory Rate 16 Blood Pressure [Right Arm] 103/54 Blood Pressure [Right Arm] 116/61 Blood Pressure [Right Arm] 121/75 Blood Pressure [Right Arm] 114/67 Blood Pressure [Right Arm] 109/66 Blood Pressure [Right Arm] 100/68 Blood Pressure [Right Arm] 107/75 O2 Sat by Pulse Oximetry 100 Oriented: Normal Eyes: Normal Ear: Normal Nose: Normal Throat: Normal Respiratory: Clear Throughout Cardiovascular: Normal : Normal Auscultation: Bowel Sounds: Normal Palpation: Normal Tenderness: Other (distended) Skin: Other (jaundice) Musculoskeletal: Normal Psychiatric: Normal Mood Description: Calm and Appropriate Affect: Normal Speech Pattern: Clear and Appropriate Assessment/Plan (1) Ascites: Qualifiers: Ascites type: due to alcoholic cirrhosis Qualified Code(s): K70.31 - Alcoholic cirrhosis of liver with ascites Status: Acute (2) Acute upper gastrointestinal bleeding: Status: Acute (3) Hyperammonemia: Status: Acute (4) Hyponatremia: Status: Acute (5) Cirrhosis: Qualifiers: Hepatic cirrhosis type: alcoholic cirrhosis Ascites presence: with ascites Qualified Code(s): K70.31 - Alcoholic cirrhosis of liver with ascites Status: Acute (6) Lactic acidosis: Status: Acute Review H&P Reviewed: Yes Patient was examined?: Yes
--- NOTE | 2025-05-18 12:31 | RAD ---
EXAM: CHEST, 1 VIEW HISTORY: sepsis, ascites, cirrhosis; COMPARISON: Prior same day chest radiograph TECHNIQUE: One view(s) of the chest. FINDINGS: Cardiomediastinal silhouette is normal in size and contour. No focal consolidation, pleural effusion, or pneumothorax. No acute osseous abnormality. IMPRESSION: No acute cardiopulmonary abnormality. THIS IS AN ELECTRONICALLY VERIFIED FINAL REPORT 05/18/2025 12:27 PM - Electronically signed by Ruddy Klein
[2025-05-18] MEDS: ALBUMIN HUMAN 25%- 100 ML 100 ML IV SCH (16:54)
[2025-05-18] MEDS: AMBIEN PO SCH (22:10)
[2025-05-19 06:42] LABS: MEAN PLATELET VOLUME 8.0 fL (7.4-11.0); RED CELL DISTRIBUTION WIDTH 18.8 % (11.6-16.5)
[2025-05-19 07:08] LABS: COR CA(FOR HYPOALB) 9.5 mg/dL (8.5-10.1); CREATININE 0.87 mg/dL (0.70-1.30); eGFR NON BLACK RACES > 60 (>60)
[2025-05-19] MEDS ORDERED: NS 1,000 ML IV 1,000 ML ONE (08:11)
[2025-05-19] MEDS: NS 1,000 ML IV 1,000 ML IV ONE (08:20)
[2025-05-19 08:24] LABS: BLOOD/HEMOGLOBIN,URINE 4+ (NEGATIVE); LEUKOCYTE ESTERASE ,URINE NEGATIVE (NEGATIVE); NITRITES,URINE NEGATIVE (NEGATIVE)
[2025-05-19 08:25] LABS: APPEARANCE,URINE CLEAR (CLEAR)
[2025-05-19 08:32] LABS: SQUAMOUS EPITHELIAL CELL,UR RARE /HPF (NEGATIVE)
[2025-05-19] MEDS ORDERED: OMNIPAQUE 350 mg/mL 100 mL BTL 100 ML ONE (08:39)
--- NOTE | 2025-05-19 09:14 | CT ---
EXAM: BRAIN W/O CON HISTORY: AMS ; ams COMPARISON: None TECHNIQUE: Multiple axial CT images of the head without contrast. Dose reduction techniques including Automated Exposure Control (AEC) and adjustment of mA and kV were utilized. FINDINGS: No visible intracranial hemorrhage or overt acute infarct. No ventriculomegaly or midline shift. Basal cisterns appear patent. Globes intact. Included paranasal sinuses and mastoid air cells appear aerated. Skull base and calvarium appear intact. IMPRESSION: No acute intracranial finding. THIS IS AN ELECTRONICALLY VERIFIED FINAL REPORT 05/19/2025 9:11 AM - Electronically signed by Mike Madrigal MD
[2025-05-19] MEDS ORDERED: NS 100 ML IV 100 ML ONE ×2 (10:06→11:05)
--- NOTE | 2025-05-19 10:15 | RAD ---
EXAM: CHEST HISTORY: N-G TUBE PLACEMENT ; tube placement COMPARISON: None. TECHNIQUE: Frontal view of the chest was submitted for interpretation. FINDINGS: Nasogastric tube projects over the stomach. The cardiomediastinal silhouette is within normal limits. Lungs show no focal consolidation, pneumothorax, or pleural fluid. IMPRESSION: Nasogastric tube projects over the stomach. THIS IS AN ELECTRONICALLY VERIFIED FINAL REPORT 05/19/2025 10:12 AM - Electronically signed by Segundo Avery MD
[2025-05-19] MEDS: PHARMACY CONSULT - VANCOMYCIN XX SCH (11:00)
[2025-05-19] MEDS: VANCOMYCIN HCL 250 MG, VANCOMYCIN HCL 1 G in D5W 250 ML IV 250 ML IV SCH (12:44)
[2025-05-19] MEDS ORDERED: CHRONULAC PO SCH ×2 (14:00→21:00)
--- NOTE | 2025-05-19 14:00 | CT ---
EXAM: CHEST WITH CONTRAST HISTORY: R/O pulmonary embolus, sepsis, ascites, cirrhosis, AMS, WEAKNESS; sepsis, ascites, cirrhosis, AMS, WEAKNESS COMPARISON: None available. TECHNIQUE: Multiple axial images of the chest were obtained from the thoracic inlet to the upper abdomen after the administration of IV contrast. 3D reconstructions utilizing axial MIPS imaging was performed and reviewed. Dose reduction techniques including Automated Exposure Control (AEC) and adjustment of mA and kV were utilized. FINDINGS: The mediastinum does not demonstrate significant pathological lymphadenopathy. There is no paracardial effusion observed. The thoracic aorta is normal in its contour without evidence for aneurysmal dilatation. The central pulmonary arterial system does not demonstrate central filling defects to suggest pulmonary emboli. Please note more distal branches are not well assessed due to timing of the bolus. Motion artifact also reduces accuracy as well. Evaluation of the lung parenchyma demonstrates minimal atelectasis with no focal consolidation. No definite effusions are seen.. No pulmonary nodule or mass can be identified. The bony thorax is unremarkable in its appearance. The upper abdomen demonstrates ascites with findings of cirrhosis and splenomegaly.. There is an NG tube noted in place. There has a tiny gallstone noted as well. IMPRESSION: Mild bibasilar atelectasis with no evidence for any focal infiltrate, effusion or pulmonary embolus. Please note the more distal branches are not well evaluated due to motion artifact and timing of the bolus. Findings of cirrhosis and splenomegaly with associated ascites. Cholelithiasis THIS IS AN ELECTRONICALLY VERIFIED FINAL REPORT 05/19/2025 1:56 PM - Electronically signed by Morgan Mclaughlin MD
[2025-05-19] MEDS: CHRONULAC PO SCH (14:04)
[2025-05-19] MEDS: CHRONULAC NG SCH (19:37)
--- NOTE | 2025-05-19 21:07 | RAD ---
EXAM: CHEST X-RAY HISTORY: NG tube placement verification. TECHNIQUE: AP chest x-ray dated May 19, 2025 at 8:24 PM. COMPARISON: CXR dated May 19, 2028 at 8:16 AM. FINDINGS: Note: Exam degraded by shallow inspiratory effort. A nasogastric tube is noted in situ with the distal tip in the lateral aspect of the proximal to middle body of the stomach. The heart size and mediastinum are within normal limits. The visualized bony structures are within normal limits. There is a shallow inspiratory effort with resultant mild prominence of the bronchopulmonary markings; while the findings may represent artifactual change from shallow inspiratory effort, bronchitis, mild noncardiogenic (or cardiogenic) pulmonary congestion, and bronchopneumonia cannot be excluded in the appropriate clinical setting. Clinical correlation is advised. No focal consolidative lung infiltrate, pleural effusion, or pneumothorax is seen. IMPRESSION: 1. A nasogastric tube is noted in situ with the distal tip in the lateral aspect of the proximal to middle body of the stomach. 2. Shallow inspiratory effort with resultant mild prominence of the bronchopulmonary markings (significant interval improvement of infiltrates compared with the previous exam); DDX includes artifactual change from shallow inspiratory effort, bronchitis, mild noncardiogenic (or cardiogenic) pulmonary congestion, and bronchopneumonia in the appropriate clinical setting. 3. Recommend clinical correlation and appropriate follow evaluation as clinically warranted. 4. Consider follow-up evaluation with noncontrast chest CT for further characterization as clinically warranted. THIS IS AN ELECTRONICALLY VERIFIED FINAL REPORT 05/19/2025 9:03 PM - Electronically signed by Fabiola Contreras MD
--- NOTE | 2025-05-19 22:59 | DR.PROGNOT ---
HOSPITAL PROGRESS NOTE Progress Note for Day of: Progress Note Date: 05/19/25 Chief Complaint Chief Complaint: progressive deterioration of mental statue.. not responding to verval commands today , no acute distress , breathing on his own . no bleeding ,. total drainage 5000 cc .. catheter was removed . WBC 12. HGB 10.0,platelets 126,Na 132,K 4.6, BUN38 , Crea0.87, Lactic acid1.6. Ammonia 214 ,Bilir 4.4 all LFT are very high . no acute changes in Brai CT , C XRay or chest CT . no evidence of acute sepsis or GI bleeding . Past Medical Family Social History Allergies: Allergies No Known Drug Allergies Allergy (Unknown, Verified 05/02/25 16:58) Onset Date: 04/30/2020 Review Of Systems Changes in ROS: see HPI Vital Signs Vital Signs: Vital Signs Temperature 98.6 F Pulse Rate [Left Brachial] 78 Respiratory Rate 18 Blood Pressure [Left Arm] 91/55 O2 Sat by Pulse Oximetry 100 Physical Exam Oriented: Not Oriented (not responsive ) Eyes: Normal (jaundice ) Ear: Normal Nose: Normal Throat: Normal Respiratory: Normal Cardiovascular: Normal : Normal GI:Auscultation: Normal GI:Palpation: Normal GI: Tenderness: Other (distended with ascited and hernia ) Skin: Other (jaundice) Musculoskeletal: Normal Psychiatric: Normal Mood Description: Calm and Appropriate Affect: Normal Laboratory and Diagnostics 05/19/25 06:15 05/19/25 06:15 Labs: Laboratory WBC 12.0 X10^3/uL (3.6-10.0) H 05/19/25 06:15 RBC 3.35 X10^6/uL (4.7-6.0) L 05/19/25 06:15 Hgb 10.0 g/dL (13.5-18.0) L 05/19/25 06:15 Hct 28.2 % (42.0-54.0) L 05/19/25 06:15 MCV 84.2 fL (80.0-100.0) 05/19/25 06:15 MCH 29.8 pg (27.0-34.0) 05/19/25 06:15 MCHC 35.4 g/dL (33.0-35.0) H 05/19/25 06:15 RDW 18.8 % (11.6-16.5) H 05/19/25 06:15 Plt Count 126 X10^3/uL (150.0-450.0) L 05/19/25 06:15 Plt Count Comment Adequate (ADEQUATE) 05/17/25 19:00 MPV 8.0 fL (7.4-11.0) 05/19/25 06:15 Neut % (Auto) 75.6 % (42.0-75.0) H 05/19/25 06:15 Lymph % (Auto) 13.3 % (21.0-51.0) L 05/19/25 06:15 [place] % (Auto) 9.2 % (0.0-13.0) 05/19/25 06:15 Eos % (Auto) 1.4 % (0.9-2.9) 05/19/25 06:15 Baso % (Auto) 0.5 % (0.2-1.0) 05/19/25 06:15 Neut # (Auto) 9.1 x10^3/uL (2.2-4.8) H 05/19/25 06:15 Lymph # (Auto) 1.6 X10^3/uL (1.3-2.9) 05/19/25 06:15 [place] # (Auto) 1.1 x10^3/uL (0.3-0.8) H 05/19/25 06:15 Eos # (Auto) 0.2 x10^3/uL (0.0-0.2) 05/19/25 06:15 Baso # (Auto) 0.1 X10^3/uL (0.0-0.1) 05/19/25 06:15 Absolute Nucleated RBC 0.4 /100WBC 05/19/25 06:15 Total Counted 100 05/17/25 19:00 Neutrophils % (Manual) 95 % (39-76) H 05/17/25 19:00 Lymphocytes % (Manual) 3 % (13-43) L 05/17/25 19:00 Monocytes % (Manual) 2 % (4-9) L 05/17/25 19:00 Plt Morphology Comment Normal (NORMAL) 05/17/25 19:00 RBC Morphology Abnormal (NORMAL) 05/17/25 19:00 Anisocytosis Slight A 05/17/25 19:00 PT 22.3 SECONDS (11.8-14.3) 05/17/25 19:00 INR Target Range - 05/17/25 19:00 INR 1.94 (0.8-1.3) H 05/17/25 19:00 APTT 35.3 SECONDS (22.9-36.5) 05/17/25 19:00 PTT Comment - 05/17/25 19:00 Sodium 132 mmol/L (136-145) L 05/19/25 06:15 Corrected Sodium TNP 05/19/25 06:15 Potassium 4.6 mmol/L (3.5-5.1) 05/19/25 06:15 Chloride 104 mmol/L (98-107) 05/19/25 06:15 Carbon Dioxide 20.6 mmol/L (21-32) L 05/19/25 06:15 BUN 38 mg/dL (7-18) H 05/19/25 06:15 Creatinine 0.87 mg/dL (0.70-1.30) 05/19/25 06:15 Est GFR (MDRD) Af Amer > 60 (>60) 05/19/25 06:15 Est GFR (MDRD) Non-Af > 60 (>60) 05/19/25 06:15 Glucose 93 mg/dL (65-99) 05/19/25 06:15 POC Glucose (mg/dL) 89 mg/dL (65-99) 05/19/25 07:59 Lactic Acid 1.6 mmol/L (0.4-2.0) 05/18/25 20:12 Calcium 8.5 mg/dL (8.5-10.1) 05/19/25 06:15 Corrected Calcium 9.5 mg/dL (8.5-10.1) 05/19/25 06:15 Total Bilirubin 4.40 mg/dL (0.2-1.0) H 05/19/25 06:15 AST 1240 Units/L (15-37) H 05/19/25 06:15 ALT 1487 Units/L (12-78) H 05/19/25 06:15 Alkaline Phosphatase 146 Units/L (46-116) H 05/19/25 06:15 Ammonia 214 umol/L (11-32) H 05/19/25 17:20 Total Protein 5.4 g/dL (6.4-8.2) L 05/19/25 06:15 Albumin 2.7 g/dL (3.4-5.0) L 05/19/25 06:15 Globulin 2.7 g/dL (2.5-4.5) 05/19/25 06:15 Albumin/Globulin Ratio 1.0 Ratio (1.1-2.1) L 05/19/25 06:15 Amylase 24 Units/L (25-115) L 05/17/25 19:00 Lipase 106 Units/L (16-77) H 05/19/25 06:15 Specimen Type Catherized urine 05/19/25 08:10 Urine Color Kiki (YELLOW) 05/19/25 08:10 Urine Appearance Clear (CLEAR) 05/19/25 08:10 Urine pH 6.0 (5.0 - 8.0) 05/19/25 08:10 Ur Specific [place] 1.020 (1.000-1.030) 05/19/25 08:10 Urine Protein 2+ (NEGATIVE) 05/19/25 08:10 Urine Glucose (UA) Negative (NEGATIVE) 05/19/25 08:10 Urine Ketones Negative (NEGATIVE) 05/19/25 08:10 Urine Blood 4+ (NEGATIVE) 05/19/25 08:10 Urine Nitrite Negative (NEGATIVE) 05/19/25 08:10 Urine Bilirubin Negative (NEGATIVE) 05/19/25 08:10 Urine Urobilinogen 3+ (NORMAL) 05/19/25 08:10 Ur Leukocyte Esterase Negative (NEGATIVE) 05/19/25 08:10 Urine RBC 10-20 /HPF (0-3) A 05/19/25 08:10 Urine WBC 0-2 /HPF (0-5) 05/19/25 08:10 Ur Squamous Epith Cells Rare /HPF (NEGATIVE) 05/19/25 08:10 Ur Renal Epithelial Cell Rare /HPF (NEGATIVE) 05/19/25 08:10 Uric Acid Crystals Numerous /HPF (NEGATIVE) 05/17/25 21:56 Urine Bacteria Trace /HPF (NEGATIVE) 05/19/25 08:10 Hyaline Casts Numerous /LPF (NEGATIVE) 05/17/25 21:56 Urine Mucus Moderate /HPF (NEGATIVE) 05/17/25 21:56 Ur Culture Indicated? No/not indicated 05/19/25 08:10 Gastric Fluid pH 4 05/17/25 20:45 Gastric Occult Blood Positive (NEGATIVE) A 05/17/25 20:45 Urine Opiates Screen Negative (NEG=<300) 05/17/25 21:56 Urine Methadone Screen Negative (NEG=<300) 05/17/25 21:56 Ur Barbiturates Screen Negative (NEG=<200) 05/17/25 21:56 Ur Phencyclidine Scrn Negative (NEG=<25) 05/17/25 21:56 Ur Amphetamines Screen Negative (NEG=<1000) 05/17/25 21:56 U Benzodiazepines Scrn Negative (NEG=<200) 05/17/25 21:56 Urine Cocaine Screen Negative (NEG=<300) 05/17/25 21:56 U Marijuana (THC) Screen Negative (NEG=<50) 05/17/25 21:56 Ethyl Alcohol mg/dL 3 mg/dL (0-19.9) 05/18/25 12:07 Assessment and Plan 1: alcoholic cirrhosis with liver failure .. no clear source of sepsis . same IV ABT and Lactulose 2: GI bleeding on admission , no active bleeding now .. same medical care and transfer when bed is available .. Problem Patient Problems: Patient Problems Cirrhosis (Acute) K74.60 Ascites (Acute) R18.8 Acute upper gastrointestinal bleeding (Acute) K92.2 Sepsis (Acute) A41.9
[2025-05-20] MEDS ORDERED: CHRONULAC PO PRN (01:05)
[2025-05-20] MEDS ORDERED: NS 250 ML IV 250 ML IV ONE ×2 (01:08→01:37)
[2025-05-20] MEDS: NS 250 ML IV 25 ML IV PRN (01:09)
[2025-05-20] MEDS: CHRONULAC PO ONE (02:30)
[2025-05-20 05:31] VITALS: O2SAT 100
[2025-05-20 06:10] LABS: MEAN PLATELET VOLUME 8.1 fL (7.4-11.0); RED CELL DISTRIBUTION WIDTH 18.6 % (11.6-16.5)
[2025-05-20 06:33] LABS: CREATININE 1.07 mg/dL (0.70-1.30); eGFR NON BLACK RACES > 60 (>60)
[2025-05-20] MEDS: VANCOMYCIN IV *PREMIX 1.25 G/250 ML BAG 1.25 G/250 ML PIGGYBACK IV SCH (10:00)
--- NOTE | 2025-05-20 10:06 | PCM.PROG ---
Progress Note Progress Note for Day of Date of Exam: 05/19/25 Subjective Subjective: Patient is a 50-year-old male with a past medical history of cirrhosis, Alcohol use disorder, and hypertension admitted for hyperammonemia, ascites, lactic acidosis, hyponatremia. This morning patient he is lethargic. His ammonia level is significantly elevated. He was evaluated and vitals were stable. He is protecting his airway and is oxygen level was 99%. He was given IV fluid bolus and blood pressure did respond appropriately. An NG tube was placed and patient was given lactulose. CT of the brain and CT of the chest was ordered results pending. His hemoglobin has remained stable. No signs of active bleeding. Patient with symptoms that appear to be related to hepatic encephalopathy. Labs/imaging: WBC 12, hemoglobin 10, platelets 126, sodium 132, potassium 4.6, creatinine 0.87, glucose 93, ammonia 239, AST 1240, ALT 1487, alk phos 146, T. bili 4.40. Patient is currently receiving IV antibiotics Zosyn and Vancomycin. Will continue with lactulose. Repeat ammonia level. IV fluids. Hold any sedating medications. Closely monitor with telemetry and close observation for any signs of respiratory distress. [place] telemedicine consulted, see recommendations. Discussed with [facility], pt was accepted for transfer to tertiary center. Will follow-up recommendations. Otherwise continue with current treatment plan. Continue closely monitor and follow-up labs/imaging. Time spent for clinical assessment, reviewing labs/imaging, physical exam, decision making and documentation greater than 45 mins. Past Medical Family Social History Allergies: Allergies No Known Drug Allergies Allergy (Unknown, Verified 05/02/25 16:58) Onset Date: 04/30/2020 Review of Systems ROS changes noted: see HPI Vital Signs and I&O's Vital Signs: Vital Signs Temperature 98.3 F Temperature 96.4 F Temperature 96.1 F Temperature 96.6 F Pulse Rate [Left Brachial] 70 Pulse Rate [Left Brachial] 60 Pulse Rate [Left Brachial] 58 Pulse Rate [Left Brachial] 60 Respiratory Rate 16 Respiratory Rate 18 Respiratory Rate 18 Respiratory Rate 16 Blood Pressure [Left Arm] 91/55 Blood Pressure [Left Arm] 90/54 Blood Pressure [Left Arm] 94/56 Blood Pressure [Left Arm] 86/54 O2 Sat by Pulse Oximetry 99 O2 Sat by Pulse Oximetry 99 O2 Sat by Pulse Oximetry 100 O2 Sat by Pulse Oximetry 99 Intake and Output: Intake & Output 05/16/25 05/17/25 05/18/25 05/19/25 23:59 23:59 23:59 23:59 Intake Total 1067 / 1067 940 / 940 Output Total 5750 / 5750 1150 / 1150 Balance -4683 / -4683 -210 / -210 Physical Exam Oriented: Not Oriented Eyes: Normal Ear: Normal Nose: Normal Throat: Normal Respiratory: Normal Cardiovascular: Normal : Normal Auscultation: Bowel Sounds: Normal Palpation: Normal Tenderness: Other (distended) Skin: Other (jaundice) Musculoskeletal: Normal Laboratory and Diagnostics 05/20/25 05:55 05/20/25 05:55 Labs: Laboratory WBC 12.0 X10^3/uL (3.6-10.0) H 05/19/25 06:15 RBC 3.35 X10^6/uL (4.7-6.0) L 05/19/25 06:15 Hgb 10.0 g/dL (13.5-18.0) L 05/19/25 06:15 Hct 28.2 % (42.0-54.0) L 05/19/25 06:15 MCV 84.2 fL (80.0-100.0) 05/19/25 06:15 MCH 29.8 pg (27.0-34.0) 05/19/25 06:15 MCHC 35.4 g/dL (33.0-35.0) H 05/19/25 06:15 RDW 18.8 % (11.6-16.5) H 05/19/25 06:15 Plt Count 126 X10^3/uL (150.0-450.0) L 05/19/25 06:15 Plt Count Comment Adequate (ADEQUATE) 05/17/25 19:00 MPV 8.0 fL (7.4-11.0) 05/19/25 06:15 Neut % (Auto) 75.6 % (42.0-75.0) H 05/19/25 06:15 Lymph % (Auto) 13.3 % (21.0-51.0) L 05/19/25 06:15 [place] % (Auto) 9.2 % (0.0-13.0) 05/19/25 06:15 Eos % (Auto) 1.4 % (0.9-2.9) 05/19/25 06:15 Baso % (Auto) 0.5 % (0.2-1.0) 05/19/25 06:15 Neut # (Auto) 9.1 x10^3/uL (2.2-4.8) H 05/19/25 06:15 Lymph # (Auto) 1.6 X10^3/uL (1.3-2.9) 05/19/25 06:15 [place] # (Auto) 1.1 x10^3/uL (0.3-0.8) H 05/19/25 06:15 Eos # (Auto) 0.2 x10^3/uL (0.0-0.2) 05/19/25 06:15 Baso # (Auto) 0.1 X10^3/uL (0.0-0.1) 05/19/25 06:15 Absolute Nucleated RBC 0.4 /100WBC 05/19/25 06:15 Total Counted 100 05/17/25 19:00 Neutrophils % (Manual) 95 % (39-76) H 05/17/25 19:00 Lymphocytes % (Manual) 3 % (13-43) L 05/17/25 19:00 Monocytes % (Manual) 2 % (4-9) L 05/17/25 19:00 Plt Morphology Comment Normal (NORMAL) 05/17/25 19:00 RBC Morphology Abnormal (NORMAL) 05/17/25 19:00 Anisocytosis Slight A 05/17/25 19:00 PT 22.3 SECONDS (11.8-14.3) 05/17/25 19:00 INR Target Range - 05/17/25 19:00 INR 1.94 (0.8-1.3) H 05/17/25 19:00 APTT 35.3 SECONDS (22.9-36.5) 05/17/25 19:00 PTT Comment - 05/17/25 19:00 Sodium 132 mmol/L (136-145) L 05/19/25 06:15 Corrected Sodium TNP 05/19/25 06:15 Potassium 4.6 mmol/L (3.5-5.1) 05/19/25 06:15 Chloride 104 mmol/L (98-107) 05/19/25 06:15 Carbon Dioxide 20.6 mmol/L (21-32) L 05/19/25 06:15 BUN 38 mg/dL (7-18) H 05/19/25 06:15 Creatinine 0.87 mg/dL (0.70-1.30) 05/19/25 06:15 Est GFR (MDRD) Af Amer > 60 (>60) 05/19/25 06:15 Est GFR (MDRD) Non-Af > 60 (>60) 05/19/25 06:15 Glucose 93 mg/dL (65-99) 05/19/25 06:15 POC Glucose (mg/dL) 89 mg/dL (65-99) 05/19/25 07:59 Lactic Acid 1.6 mmol/L (0.4-2.0) 05/18/25 20:12 Calcium 8.5 mg/dL (8.5-10.1) 05/19/25 06:15 Corrected Calcium 9.5 mg/dL (8.5-10.1) 05/19/25 06:15 Total Bilirubin 4.40 mg/dL (0.2-1.0) H 05/19/25 06:15 AST 1240 Units/L (15-37) H 05/19/25 06:15 ALT 1487 Units/L (12-78) H 05/19/25 06:15 Alkaline Phosphatase 146 Units/L (46-116) H 05/19/25 06:15 Ammonia 239 umol/L (11-32) H 05/19/25 06:15 Total Protein 5.4 g/dL (6.4-8.2) L 05/19/25 06:15 Albumin 2.7 g/dL (3.4-5.0) L 05/19/25 06:15 Globulin 2.7 g/dL (2.5-4.5) 05/19/25 06:15 Albumin/Globulin Ratio 1.0 Ratio (1.1-2.1) L 05/19/25 06:15 Amylase 24 Units/L (25-115) L 05/17/25 19:00 Lipase 106 Units/L (16-77) H 05/19/25 06:15 Specimen Type Catherized urine 05/19/25 08:10 Urine Color [place] (YELLOW) 05/19/25 08:10 Urine Appearance Clear (CLEAR) 05/19/25 08:10 Urine pH 6.0 (5.0 - 8.0) 05/19/25 08:10 Ur Specific [place] 1.020 (1.000-1.030) 05/19/25 08:10 Urine Protein 2+ (NEGATIVE) 05/19/25 08:10 Urine Glucose (UA) Negative (NEGATIVE) 05/19/25 08:10 Urine Ketones Negative (NEGATIVE) 05/19/25 08:10 Urine Blood 4+ (NEGATIVE) 05/19/25 08:10 Urine Nitrite Negative (NEGATIVE) 05/19/25 08:10 Urine Bilirubin Negative (NEGATIVE) 05/19/25 08:10 Urine Urobilinogen 3+ (NORMAL) 05/19/25 08:10 Ur Leukocyte Esterase Negative (NEGATIVE) 05/19/25 08:10 Urine RBC 10-20 /HPF (0-3) A 05/19/25 08:10 Urine WBC 0-2 /HPF (0-5) 05/19/25 08:10 Ur Squamous Epith Cells Rare /HPF (NEGATIVE) 05/19/25 08:10 Ur Renal Epithelial Cell Rare /HPF (NEGATIVE) 05/19/25 08:10 Uric Acid Crystals Numerous /HPF (NEGATIVE) 05/17/25 21:56 Urine Bacteria Trace /HPF (NEGATIVE) 05/19/25 08:10 Hyaline Casts Numerous /LPF (NEGATIVE) 05/17/25 21:56 Urine Mucus Moderate /HPF (NEGATIVE) 05/17/25 21:56 Ur Culture Indicated? No/not indicated 05/19/25 08:10 Gastric Fluid pH 4 05/17/25 20:45 Gastric Occult Blood Positive (NEGATIVE) A 05/17/25 20:45 Urine Opiates Screen Negative (NEG=<300) 05/17/25 21:56 Urine Methadone Screen Negative (NEG=<300) 05/17/25 21:56 Ur Barbiturates Screen Negative (NEG=<200) 05/17/25 21:56 Ur Phencyclidine Scrn Negative (NEG=<25) 05/17/25 21:56 Ur Amphetamines Screen Negative (NEG=<1000) 05/17/25 21:56 U Benzodiazepines Scrn Negative (NEG=<200) 05/17/25 21:56 Urine Cocaine Screen Negative (NEG=<300) 05/17/25 21:56 U Marijuana (THC) Screen Negative (NEG=<50) 05/17/25 21:56 Ethyl Alcohol mg/dL 3 mg/dL (0-19.9) 05/18/25 12:07 Plan (1) Hepatic encephalopathy: Status: Acute (2) Ascites: Status: Acute Qualifiers: Ascites type: due to alcoholic cirrhosis Qualified Code(s): K70.31 - Alcoholic cirrhosis of liver with ascites (3) Acute upper gastrointestinal bleeding: Status: Acute (4) Hyperammonemia: Status: Acute (5) Hyponatremia: Status: Acute (6) Cirrhosis: Status: Acute Qualifiers: Ascites presence: with ascites Hepatic cirrhosis type: alcoholic cirrhosis Qualified Code(s): K70.31 - Alcoholic cirrhosis of liver with ascites (7) Lactic acidosis: Status: Acute
[2025-05-20] MEDS ORDERED: NYSTATIN CREAM ONE (10:25)
[2025-05-20 10:52] LABS: INR 1.91 (0.8-1.3)
[2025-05-20] MEDS: NYSTATIN CREAM TOP SCH (11:00)
--- NOTE | 2025-05-20 15:34 | DR.PROGNOT ---
HOSPITAL PROGRESS NOTE Progress Note for Day of: Progress Note Date: 05/20/25 Chief Complaint Chief Complaint: Moderate improvement in mental status, responding to pain stimuli but not to verbal demands. Had large bowel movement last night which was very dark.. WBC 13.6. HGB 10.7,platelets 114,Na 132,K 4.6, BUN30, Crea 1.07, Ammonia 52 ,Bilir 6 .. all LFT are still high . Past Medical Family Social History Allergies: Allergies No Known Drug Allergies Allergy (Unknown, Verified 05/02/25 16:58) Onset Date: 04/30/2020 Review Of Systems Changes in ROS: see HPI Vital Signs Vital Signs: Vital Signs Temperature 97.9 F Temperature 98.0 F Pulse Rate [Left Brachial] 107 Pulse Rate [Left Brachial] 112 Respiratory Rate 16 Respiratory Rate 16 Blood Pressure [Left Arm] 102/69 Blood Pressure [Left Arm] 96/62 O2 Sat by Pulse Oximetry 100 O2 Sat by Pulse Oximetry 100 Physical Exam Oriented: Not Oriented (not responsive ) Eyes: Normal (jaundice ) Ear: Normal Nose: Normal Throat: Normal Respiratory: Normal Cardiovascular: Normal : Normal GI:Auscultation: Normal GI:Palpation: Normal GI: Tenderness: Other (distended with ascited and hernia ) Skin: Other (jaundice) Musculoskeletal: Normal Psychiatric: Normal Mood Description: Calm and Appropriate Affect: Normal Speech Pattern: Aphasic Laboratory and Diagnostics 05/20/25 12:18 05/20/25 05:55 Labs: 05/18/25 00:08 Blood Blood Culture - Preliminary 05/18/25 00:01 Blood Blood Culture - Preliminary Laboratory WBC 13.6 X10^3/uL (3.6-10.0) H 05/20/25 05:55 RBC 3.52 X10^6/uL (4.7-6.0) L 05/20/25 05:55 Hgb 9.4 g/dL (13.5-18.0) L 05/20/25 12:18 Hct 27.5 % (42.0-54.0) L 05/20/25 12:18 MCV 86.5 fL (80.0-100.0) 05/20/25 05:55 MCH 30.3 pg (27.0-34.0) 05/20/25 05:55 MCHC 35.0 g/dL (33.0-35.0) 05/20/25 05:55 RDW 18.6 % (11.6-16.5) H 05/20/25 05:55 Plt Count 114 X10^3/uL (150.0-450.0) L 05/20/25 05:55 Plt Count Comment Adequate (ADEQUATE) 05/17/25 19:00 MPV 8.1 fL (7.4-11.0) 05/20/25 05:55 Neut % (Auto) 74.2 % (42.0-75.0) 05/20/25 05:55 Lymph % (Auto) 11.4 % (21.0-51.0) L 05/20/25 05:55 [place] % (Auto) 12.7 % (0.0-13.0) 05/20/25 05:55 Eos % (Auto) 1.1 % (0.9-2.9) 05/20/25 05:55 Baso % (Auto) 0.6 % (0.2-1.0) 05/20/25 05:55 Neut # (Auto) 10.1 x10^3/uL (2.2-4.8) H 05/20/25 05:55 Lymph # (Auto) 1.6 X10^3/uL (1.3-2.9) 05/20/25 05:55 [place] # (Auto) 1.7 x10^3/uL (0.3-0.8) H 05/20/25 05:55 Eos # (Auto) 0.2 x10^3/uL (0.0-0.2) 05/20/25 05:55 Baso # (Auto) 0.1 X10^3/uL (0.0-0.1) 05/20/25 05:55 Absolute Nucleated RBC 0.4 /100WBC 05/20/25 05:55 Total Counted 100 05/17/25 19:00 Neutrophils % (Manual) 95 % (39-76) H 05/17/25 19:00 Lymphocytes % (Manual) 3 % (13-43) L 05/17/25 19:00 Monocytes % (Manual) 2 % (4-9) L 05/17/25 19:00 Plt Morphology Comment Normal (NORMAL) 05/17/25 19:00 RBC Morphology Abnormal (NORMAL) 05/17/25 19:00 Anisocytosis Slight A 05/17/25 19:00 PT 22.1 SECONDS (11.8-14.3) 05/20/25 05:55 INR Target Range - 05/20/25 05:55 INR 1.91 (0.8-1.3) H 05/20/25 05:55 APTT 35.3 SECONDS (22.9-36.5) 05/17/25 19:00 PTT Comment - 05/17/25 19:00 Sodium 140 mmol/L (136-145) 05/20/25 05:55 Corrected Sodium TNP 05/20/25 05:55 Potassium 3.7 mmol/L (3.5-5.1) 05/20/25 05:55 Chloride 109 mmol/L (98-107) H 05/20/25 05:55 Carbon Dioxide 19.4 mmol/L (21-32) L 05/20/25 05:55 BUN 30 mg/dL (7-18) H 05/20/25 05:55 Creatinine 1.07 mg/dL (0.70-1.30) 05/20/25 05:55 Est GFR (MDRD) Af Amer > 60 (>60) 05/20/25 05:55 Est GFR (MDRD) Non-Af > 60 (>60) 05/20/25 05:55 Glucose 96 mg/dL (65-99) 05/20/25 05:55 POC Glucose (mg/dL) 89 mg/dL (65-99) 05/19/25 07:59 Lactic Acid 1.6 mmol/L (0.4-2.0) 05/18/25 20:12 Calcium 8.5 mg/dL (8.5-10.1) 05/20/25 05:55 Corrected Calcium TNP 05/20/25 05:55 Total Bilirubin 6.20 mg/dL (0.2-1.0) H 05/20/25 05:55 AST 641 Units/L (15-37) H 05/20/25 05:55 ALT 1233 Units/L (12-78) H 05/20/25 05:55 Alkaline Phosphatase 169 Units/L (46-116) H 05/20/25 05:55 Ammonia 52 umol/L (11-32) H 05/20/25 05:55 Total Protein 6.3 g/dL (6.4-8.2) L 05/20/25 05:55 Albumin 3.5 g/dL (3.4-5.0) 05/20/25 05:55 Globulin 2.8 g/dL (2.5-4.5) 05/20/25 05:55 Albumin/Globulin Ratio 1.3 Ratio (1.1-2.1) 05/20/25 05:55 Amylase 24 Units/L (25-115) L 05/17/25 19:00 Lipase 102 Units/L (16-77) H 05/20/25 05:55 Specimen Type Catherized urine 05/19/25 08:10 Urine Color [place] (YELLOW) 05/19/25 08:10 Urine Appearance Clear (CLEAR) 05/19/25 08:10 Urine pH 6.0 (5.0 - 8.0) 05/19/25 08:10 Ur Specific [place] 1.020 (1.000-1.030) 05/19/25 08:10 Urine Protein 2+ (NEGATIVE) 05/19/25 08:10 Urine Glucose (UA) Negative (NEGATIVE) 05/19/25 08:10 Urine Ketones Negative (NEGATIVE) 05/19/25 08:10 Urine Blood 4+ (NEGATIVE) 05/19/25 08:10 Urine Nitrite Negative (NEGATIVE) 05/19/25 08:10 Urine Bilirubin Negative (NEGATIVE) 05/19/25 08:10 Urine Urobilinogen 3+ (NORMAL) 05/19/25 08:10 Ur Leukocyte Esterase Negative (NEGATIVE) 05/19/25 08:10 Urine RBC 10-20 /HPF (0-3) A 05/19/25 08:10 Urine WBC 0-2 /HPF (0-5) 05/19/25 08:10 Ur Squamous Epith Cells Rare /HPF (NEGATIVE) 05/19/25 08:10 Ur Renal Epithelial Cell Rare /HPF (NEGATIVE) 05/19/25 08:10 Uric Acid Crystals Numerous /HPF (NEGATIVE) 05/17/25 21:56 Urine Bacteria Trace /HPF (NEGATIVE) 05/19/25 08:10 Hyaline Casts Numerous /LPF (NEGATIVE) 05/17/25 21:56 Urine Mucus Moderate /HPF (NEGATIVE) 05/17/25 21:56 Ur Culture Indicated? No/not indicated 05/19/25 08:10 Gastric Fluid pH 4 05/17/25 20:45 Gastric Occult Blood Positive (NEGATIVE) A 05/17/25 20:45 Urine Opiates Screen Negative (NEG=<300) 05/17/25 21:56 Urine Methadone Screen Negative (NEG=<300) 05/17/25 21:56 Ur Barbiturates Screen Negative (NEG=<200) 05/17/25 21:56 Ur Phencyclidine Scrn Negative (NEG=<25) 05/17/25 21:56 Ur Amphetamines Screen Negative (NEG=<1000) 05/17/25 21:56 U Benzodiazepines Scrn Negative (NEG=<200) 05/17/25 21:56 Urine Cocaine Screen Negative (NEG=<300) 05/17/25 21:56 U Marijuana (THC) Screen Negative (NEG=<50) 05/17/25 21:56 Ethyl Alcohol mg/dL 3 mg/dL (0-19.9) 05/18/25 12:07 Blood Type O POSITIVE 05/19/25 22:41 Antibody Screen Negative 05/19/25 22:41 Crossmatch See Detail 05/19/25 22:41 Assessment and Plan 1: cirrhosis with liver failure and encephalopathy.. no clear source of sepsis . Mild improvement from yesterday same plan 2: GI bleeding on admission , no active bleeding now .. same medical care and transfer when bed is available .. Problem Patient Problems: Patient Problems Cirrhosis (Acute) K74.60 Ascites (Acute) R18.8 Acute upper gastrointestinal bleeding (Acute) K92.2 Sepsis (Acute) A41.9
[2025-05-20 17:33] VITALS: RESP 18
[2025-05-20 21:03] VITALS: BP 111/67; PULSE 101; TEMP 97.9
[2025-05-21] MEDS ORDERED: PHENOBARBITAL TAB 15 MG (16.2MG) PO SCH (13:00)
[2025-05-21] MEDS ORDERED: PHARMACY COMMENT IV ONE (20:30)
== END 2025-05-20 21:25 | disposition short-term general hospital (02) | DRG 433 ==
LOC: MED/SURG 18:30 → ER 18:30 → OBSVTOIN 05-18 04:26 → MED/SURG 05-18 04:54
PROVIDERS: ADMIT Family Medicine; ATTEND Surgery
DX: K76.82 Hepatic encephalopathy; R79.89 Other specified abnormal findings of blood chemistry; K72.90 Hepatic failure, unspecified without coma; F10.20 Alcohol dependence, uncomplicated; R53.1 Weakness; R79.1 Abnormal coagulation profile; K80.80 Other cholelithiasis without obstruction; I10 Essential (primary) hypertension; K70.31 Alcoholic cirrhosis of liver with ascites; K92.0 Hematemesis; R41.82 Altered mental status, unspecified; E87.5 Hyperkalemia; K92.2 Gastrointestinal hemorrhage, unspecified; Z65.8 Other specified problems related to psychosocial circumstances; E87.1 Hypo-osmolality and hyponatremia